=== PATIENT | female | born 1995 | race Caucasian/White ===

== ENCOUNTER 2019-02-21 23:09 | Inpatient (IN) ==
[2019-02-21] MEDS ORDERED: LACTATED RINGER'S 1,000 ML IV PRN (23:20)
[2019-02-21 23:42] LABS: Hematocrit (blood only) 37.9 % (37-47); Hemoglobin 13.4 g/dL (12.0-16.0); Mean Corpuscular Volume 92.7 fL (80-100); Mean Platelet Volume 11.3 fL (7.4-10.4); Platelet Count 222 K/uL (130-400); RDW Coefficient of Variation 12.5 % (11.5-14.5); RDW Standard Deviation 42.3 fL (36.4-46.3); Red Blood Count 4.09 M/uL (4.2-5.4); White Blood Count 17.11 K/uL (4.8-10.8)
[2019-02-21 23:47] LABS: Mean Corpuscular Hgb Conc 35.4 g/dL (32-36)
[2019-02-21] MEDS ORDERED: OXYTOCIN 30 UNITS/500ML NSS ONE (23:47)
[2019-02-22] MEDS: OXYTOCIN 30 UNITS/500 ML BAG IV PRN ×2 (00:02→01:35)
[2019-02-22] MEDS ORDERED: METHYLERGONOVINE MALEATE 0.2 MG/ML AMP ONE (00:03)
[2019-02-22] MEDS ORDERED: miSOPROStol 200 MCG TAB ONE (00:03)
[2019-02-22] MEDS ORDERED: OXYTOCIN 30 UNITS/500 ML BAG IV PRN (00:55)
[2019-02-22] MEDS ORDERED: HYDROCORTISONE ACETATE 25 MG SUPP PR PRN (00:55)
[2019-02-22] MEDS ORDERED: BISACODYL 10 MG SUPP PR PRN (00:55)
[2019-02-22] MEDS ORDERED: miSOPROStol 200 MCG TAB PR ONE (00:55)
[2019-02-22] MEDS ORDERED: ACETAMINOPHEN 325 MG TAB PO PRN (00:55)
[2019-02-22] MEDS ORDERED: SUPERCREAM 0.870% 15 GM JAR EXT PRN (00:55)
[2019-02-22] MEDS ORDERED: METHYLERGONOVINE MALEATE 0.2 MG/ML AMP IM ONE (00:55)
[2019-02-22] MEDS ORDERED: BENZOCAINE 20% AER SPR 82.5 GM CAN EXT PRN (00:55)
[2019-02-22] MEDS ORDERED: IBUPROFEN 600 MG TAB PO ONE (01:26)
--- NOTE | 2019-02-22 01:43 | History and Physical Report ---
DATE OF ADMISSION: 02/21/2019 HISTORY OF PRESENT ILLNESS: The patient is a 23-year-old G1, P0, due date of 02/19/2019 making her 40 weeks and 2 days who presented to labor and delivery at [facility] in labor. On examination, she was found to be 9 cm with bulging membranes. The patient had no shortness of breath. No chills. No rupture of membranes. No bloody show. COURSE: Had been unremarkable. LABORATORY DATA: Blood type is O positive, antibody negative, rubella immune and GBS negative. PAST MEDICAL HISTORY: The patient has a history of insulin resistance. PAST SURGICAL HISTORY: The patient had dental surgery in the past. OBSTETRICAL AND GYNECOLOGICAL HISTORY: This is the patient's first . FAMILY HISTORY: Noncontributory. SOCIAL HISTORY: The patient denies tobacco, drug or alcohol use. ALLERGIES: No known drug allergies. PHYSICAL EXAMINATION: GENERAL: Well-developed, well-nourished white female, in labor discomfort. HEART: S1, S2. Regular rhythm and rate. LUNGS: Clear to auscultation bilaterally. ABDOMEN: Gravid. PELVIC: By nurse present, 9 cm with bulging membranes. EXTREMITIES: No cyanosis, clubbing or edema. ASSESSMENT AND PLAN: This patient is a 23-year-old G1, P0 at 40 and 2 admitted for labor. We anticipate vaginal delivery.
--- NOTE | 2019-02-22 02:30 | Delivery Summary ---
DATE OF OPERATION: 02/21/2019 DELIVERY NOTE The patient delivered a live in left occiput anterior presentation. There was nuchal cord which was easily reduced. was delivered, placed on mother's abdomen. Cord was clamped and cut. The patient was known to have meconium upon artificial rupture of membranes. There was terminal meconium after delivery. Cord was clamped and cut. As stated above, handed over to the pediatric team. Details of patient's resuscitation is in the pediatric record. Cord blood was obtained. Placenta was spontaneously delivered. Inspection of the placenta shows meconium stained placenta. Inspection of the perineum showed second-degree laceration with bilateral deep sulcus tear which was repaired with Vicryl in layers. 2-0 Vicryl and 3-0 Vicryl were used for the repair. Inspection of the perineum post repair showed good sphincter tone. There are no sutures palpated in the rectum. There was good hemostasis. Estimated blood loss was 500 mL. Baby and mother are doing well in recovery. I attest to the content of the Intraoperative Record and any orders documented therein. Any exception s are noted below.
[2019-02-22] MEDS: IBUPROFEN 600 MG TAB PO PRN ×3 (05:52→23:29)
[2019-02-22] MEDS: DOCUSATE SODIUM 100 MG CAP PO SCH ×2 (07:53→20:06)
[2019-02-22] MEDS: FERROUS SULFATE 325 MG TAB PO SCH (07:54)
[2019-02-22] MEDS: PRENATAL VITAMIN 1 TAB PO SCH (07:54)
--- NOTE | 2019-02-22 11:42 | Obstetrical Progress Note ---
Date of Service February 22, 2019 Physical Exam Physical Exam: abdomen soft and non tender vaginal bleeding scant no calf tenderness ambulating well Results & Data Vital Signs (Past 12 Hours) Vital Signs Temp Pulse Pulse Resp BP BP 02/22/19 07:35 37.0 C 91 H 16 122/74 02/22/19 03:20 37.2 C 108 H 18 111/68 02/22/19 02:47 97 H 124/58 L 02/22/19 02:45 18 02/22/19 02:18 96 H 115/78 02/22/19 02:15 02/22/19 02:11 98 H 121/82 02/22/19 01:56 98 H 120/82 02/22/19 01:45 18 02/22/19 01:41 94 H 117/74 02/22/19 01:30 02/22/19 01:26 92 H 117/76 02/22/19 01:15 18 02/22/19 01:11 94 H 115/75 02/22/19 01:00 02/22/19 00:56 105 H 113/73 02/22/19 00:45 02/22/19 00:06 109 H 124/59 L
[2019-02-22 17:41] VITALS: O2SAT 98
[2019-02-23 06:35] LABS: Hematocrit (blood only) 33.2 % (37-47); Hemoglobin 11.3 g/dL (12.0-16.0); Mean Corpuscular Volume 94.3 fL (80-100); Platelet Count 180 K/uL (130-400); RDW Coefficient of Variation 12.8 % (11.5-14.5); RDW Standard Deviation 43.3 fL (36.4-46.3); Red Blood Count 3.52 M/uL (4.2-5.4); White Blood Count 10.65 K/uL (4.8-10.8)
[2019-02-23] MEDS: IBUPROFEN 600 MG TAB PO PRN (07:33)
[2019-02-23] MEDS: FERROUS SULFATE 325 MG TAB PO SCH (07:34)
[2019-02-23] MEDS: PRENATAL VITAMIN 1 TAB PO SCH (07:34)
[2019-02-23] MEDS: DOCUSATE SODIUM 100 MG CAP PO SCH (07:34)
[2019-02-23] MEDS ORDERED: DIPHTHERIA/TETANUS/PERTUSSIS 0.5 ML SYR/VIAL IM ONE (09:00)
[2019-02-23 09:38] VITALS: TEMP 98.1
--- NOTE | 2019-02-23 10:01 | Obstetrical Progress Note ---
Date of Service February 23, 2019 Subjective doing fine Physical Exam Constitutional: WD/WN, vitals as above comfortable abdomen soft non- tender no edema neg Miroslava's for discharge Results & Data Vital Signs (Past 12 Hours) Vital Signs Temp Pulse Resp BP 02/23/19 07:30 36.7 C 73 18 110/74 02/22/19 23:10 36.8 C 87 18 106/70 Laboratory Results Laboratory Results - last 48 hr 02/21/19 02/23/19 23:29 05:55 WBC 17.11 H 10.65 RBC 4.09 L 3.52 L Hgb 13.4 11.3 L Hct 37.9 33.2 L MCV 92.7 94.3 MCH 32.8 32.1 MCHC 35.4 34.0 RDW Std Deviation 42.3 43.3 RDW Coeff of Yudith 12.5 12.8 Plt Count 222 180 MPV 11.3 H 11.0 H
[2019-02-23 11:12] VITALS: BP 121/84; PULSE 92
[2019-02-23] MEDS ORDERED: BISACODYL 5 MG TABEC PO SCH (20:00)
== END 2019-02-23 12:30 | disposition home or self-care (01) | DRG 807 ==
LOC: OPB 23:09 → 4S1 23:16 → 4S2 02-22 03:05

== ENCOUNTER 2021-11-12 07:28 | Inpatient (IN) ==
[2021-11-12] MEDS ORDERED: OXYTOCIN 30 UNITS/500 ML BAG IV PRN ×3 (09:17→22:57)
[2021-11-12 10:03] LABS: Hematocrit (blood only) 36.9 % (37-47); Hemoglobin 12.5 g/dL (12.0-16.0); Mean Corpuscular Hemoglobin 32.1 pg (25-34); Mean Corpuscular Hgb Conc 33.9 g/dL (32-36); Mean Corpuscular Volume 94.9 fL (80-100); Platelet Count 186 K/uL (130-400); RDW Coefficient of Variation 13.1 % (11.5-14.5); RDW Standard Deviation 44.8 fL (36.4-46.3); Red Blood Count 3.89 M/uL (4.2-5.4); White Blood Count 9.43 K/uL (4.8-10.8)
[2021-11-12] MEDS ORDERED: miSOPROStoL 50 MCG TAB PO ONE (10:14)
[2021-11-12] MEDS ORDERED: LACTATED RINGER'S 1,000 ML IV PRN (10:14)
--- NOTE | 2021-11-12 10:24 | Obstetrical Progress Note ---
Date of Service November 12, 2021 Assessment & Plan (1) , post-term: Plan: 26yo Induction for post dates Reviewed course with pt Unremarkable course FHR; CAT1 Ctx ; Minimal VE; /-3 Bedside sono: VT Cytotec Q4 Admission and Anticipated Discharge Date Admission Date: November 12, 2021 Results & Data ([facility]) Vital Signs (Past 12 Hours) Vital Signs Temp Pulse Resp BP 11/12/21 08:19 36.8 C 102 H 18 110/71 11/12/21 08:00 36.8 C 102 H 18 110/71
[2021-11-12] MEDS: LACTATED RINGER'S 1,000 ML IV PRN ×2 (16:00→18:59)
[2021-11-12] MEDS ORDERED: BUTORPHANOL TARTRATE 1 MG/ML VIAL IV PRN (16:15)
--- NOTE | 2021-11-12 18:09 | Labor Progress Brief Note ---
Date of Service November 12, 2021 Assessment & Plan (1) , post-term: Plan: PT doing well FHR; CAT Ctx 2-4mins VE; /-2 AROM with Amnio. hook- +ve Meconium Admission and Anticipated Discharge Date Admission Date: November 12, 2021 Results & Data ([facility]) Vital Signs (Past 12 Hours) Vital Signs Temp Pulse Resp BP 11/12/21 15:13 36.7 C 88 18 120/82 11/12/21 11:32 85 118/72 11/12/21 11:30 36.5 C 85 18 118/72 11/12/21 08:19 36.8 C 102 H 18 110/71 11/12/21 08:00 36.8 C 102 H 18 110/71
[2021-11-12] MEDS ORDERED: SODIUM CHLORIDE 0.9% INJ 10 ML VIAL ONE (18:47)
[2021-11-12] MEDS ORDERED: fentaNYL 2MCG/ML ROPIVACAINE 1.25MG/ML 100 ML BAG EPI ONE (18:47)
[2021-11-12] MEDS ORDERED: fentaNYL citrate 100 MCG/2 ML VIAL ONE (18:47)
[2021-11-12] MEDS ORDERED: ePHEDrine sulfate 50 MG/ML AMP ONE (18:47)
[2021-11-12] MEDS ORDERED: BUPIVACAINE 0.25% 30 ML VIAL ONE (18:47)
[2021-11-12] MEDS ORDERED: NALBUPHINE HCL INJ 10 MG/ML AMP IV PRN (18:57)
[2021-11-12] MEDS ORDERED: NALOXONE HCL 1 MG in SODIUM CHLORIDE 0.9% 1000ML 1,000 ML IV PRN (18:57)
[2021-11-12] MEDS ORDERED: ONDANSETRON INJ 2 MG/ML 2 ML VIAL IV PRN (18:57)
[2021-11-12] MEDS ORDERED: diphenhydrAMINE 50 MG/ML VIAL IV PRN (18:57)
[2021-11-12] MEDS ORDERED: fentaNYL 2MCG/ML ROPIVACAINE 1.25MG/ML 100 ML BAG EPI PRN (18:57)
[2021-11-12] MEDS ORDERED: NALOXONE HCL 0.4 MG/1 ML VIAL/CARP IV PRN (18:57)
[2021-11-12] MEDS ORDERED: ePHEDrine sulfate 50 MG/ML AMP IV PRN (18:57)
--- NOTE | 2021-11-12 18:57 | Anesthesiology Consultation ---
Date of Service November 12, 2021 Assessment & Plan ASA ASA2 Proposed Anesthesia Anesthesia Type: Labor Epidural Risk / Benefits Reviewed With: PT / POA / Parent / Guardian, Accepts Plan and Informed Consent Obtained History Height/Weight Height: 5 ft 5 in Weight: 106.994 kg Allergies Allergy/AdvReac Type Severity Reaction Status Date / Time amoxicillin Allergy Vomiting Verified 11/12/21 08:06 Medications Home Medications Medication Instructions Recorded Confirmed Last Taken vits no.124-ferrous fum 1 tab PO DAILY 02/21/19 11/12/21 11/11/21 27 mg iron-folic acid 800 mcg tablet ( Vitamin) Active Medications Generic Name Dose Route Start Last Admin Trade Name Freq PRN Reason Stop Dose Admin Butorphanol Tartrate 2 mg 11/12/21 16:15 11/12/21 16:30 Butorphanol Tartrate 1 Mg/Ml Vial IV 12/12/21 16:14 2 mg Q4 PRN Administration Pain Lactated Ringer's 1,000 mls @ 125 mls/hr 11/12/21 09:17 11/12/21 18:59 Lr IV 11/14/21 09:16 125 mls/hr .Q8H PRN Administration L&D Protocol Protocol Ropivacaine 100 ml 11/12/21 18:57 11/12/21 19:26 Fentanyl 2mcg/Ml Ropivacaine 1.25mg/Ml 100 Ml Bag EPI 11/13/21 18:56 100 ml PRN PRN Administration Pain R/T Labor Protocol Past Medical History Medical History PCOS (polycystic ovarian syndrome) Exercise / Class Metabolic Activity II 4-5 Yardwork/Stairs/Walk up hill Past Surgical History Surgical History Zavalla teeth removed Past Anesthesia History No Hx of Anesthesia Complications and No Family Hx of Anesthesia Complications History of PONV No Hx of PONV and No Hx of Motion Sickness Social History Smoking Status: Never smoker Hx Alcohol Use: No Hx Substance Use: No Review of Systems denies fever/cough/ colds/ chest pain/ SOB/ VINNIE denies VINNIE Physical Exam Vital Signs Last Vital Signs Temp 37.0 C 11/12/21 19:13 Pulse 85 11/12/21 19:38 Resp 20 11/12/21 19:13 BP 130/67 11/12/21 19:30 Pulse Ox 92 11/12/21 19:38 ENMT Mouth: no TMJ abnormality and no dentition abnormality Thyromental Distance: > or= 3.5 Finger Breadths Mallampati Class: II Neck neck extension not limited Respiratory normal respiratory effort; no respiratory distress Auscultation: lungs clear to auscultation bilaterally Cardiovascular Rate/Rhythm: regular rate and regular rhythm Neurologic moves all extremities Psychiatric Orientation: alert and oriented x 3 Testing Laboratory Results 11/12/21 09:36 Blood Type O Positive 11/12/21 08:34 Antibody Screen NEGATIVE 11/12/21 08:34
--- NOTE | 2021-11-12 21:29 | Labor Progress Brief Note ---
Date of Service November 12, 2021 Assessment & Plan (1) , post-term: Plan: doing well Epidural analgesia placed FHR; CAT1 Ctx 1-3min VE; / Admission and Anticipated Discharge Date Admission Date: November 12, 2021 Results & Data ([facility]) Vital Signs (Past 12 Hours) Vital Signs Temp Pulse Resp BP Pulse Ox 11/12/21 21:23 95 H 93 11/12/21 21:22 98 H 94 11/12/21 21:18 96 H 135/87 93 11/12/21 21:13 110 H 93 11/12/21 21:08 110 H 94 11/12/21 21:06 93 H 90 11/12/21 21:03 109 H 92 11/12/21 21:02 80 131/68 11/12/21 21:01 18 11/12/21 20:58 74 91 11/12/21 20:53 95 H 92 11/12/21 20:48 79 91 11/12/21 20:47 86 133/68 11/12/21 20:43 93 H 90 11/12/21 20:38 100 H 89 L 11/12/21 20:37 93 H 94 11/12/21 20:33 102 H 89 L 11/12/21 20:32 81 125/74 11/12/21 20:31 18 11/12/21 20:28 106 H 92 11/12/21 20:23 90 90 11/12/21 20:18 103 H 93 11/12/21 20:17 93 H 118/70 11/12/21 20:13 83 93 11/12/21 20:12 87 94 11/12/21 20:08 110 H 92 11/12/21 20:03 88 92 11/12/21 20:02 76 127/69 11/12/21 20:01 18 11/12/21 19:58 91 H 91 11/12/21 19:55 89 94 11/12/21 19:53 89 92 11/12/21 19:48 77 125/66 93 11/12/21 19:46 18 11/12/21 19:43 79 92 11/12/21 19:41 18 11/12/21 19:38 85 92 11/12/21 19:36 18 11/12/21 19:33 91 H 94 11/12/21 19:31 18 11/12/21 19:30 94 H 130/67 11/12/21 19:28 89 132/67 94 11/12/21 19:26 96 H 129/57 L 11/12/21 19:24 103 H 134/65 94 11/12/21 19:23 101 H 93 11/12/21 19:18 100 H 94 11/12/21 19:13 37.0 C 121 H 20 95 11/12/21 19:12 123 H 135/62 92 11/12/21 19:11 121 H 161/84 H 11/12/21 18:39 36.8 C 98 H 124/74 11/12/21 15:13 36.7 C 88 18 120/82 11/12/21 11:32 85 118/72 11/12/21 11:30 36.5 C 85 18 118/72
[2021-11-12] MEDS ORDERED: NURSING L&D Epidural Breakthrough Pain Update ONE (21:32)
[2021-11-12] MEDS ORDERED: miSOPROStoL 200 MCG TAB PR ONE (22:57)
[2021-11-12] MEDS ORDERED: ACETAMINOPHEN 325 MG TAB PO PRN (22:57)
[2021-11-12] MEDS ORDERED: BENZOCAINE 20% AER SPR 82.5 GM CAN EXT PRN (22:57)
[2021-11-12] MEDS ORDERED: HYDROCORTISONE ACETATE 25 MG SUPP PR PRN (22:57)
[2021-11-12] MEDS ORDERED: DIPHTHERIA/TETANUS/PERTUSSIS 0.5 ML SYR/VIAL IM ONE (22:57)
[2021-11-12] MEDS ORDERED: bisacodyL 10 MG SUPP PR PRN (22:57)
--- NOTE | 2021-11-13 00:52 | Anesthesiology Progress Note ---
Date of Service November 13, 2021 Anesthesia Post Procedure Vital Signs Vital Signs: Temp Pulse Resp BP Pulse Ox 11/13/21 00:43 18 11/13/21 00:42 82 128/74 11/13/21 00:27 86 117/83 11/13/21 00:15 18 11/13/21 00:12 79 105/73 11/12/21 23:57 80 108/55 L 11/12/21 23:45 18 11/12/21 23:42 80 130/64 11/12/21 23:30 18 11/12/21 23:27 81 143/66 H 11/12/21 23:17 97 H 143/69 H 11/12/21 23:15 18 11/12/21 23:06 90 114/56 L 11/12/21 23:00 18 11/12/21 22:56 96 H 123/60 11/12/21 22:46 96 H 119/57 L 11/12/21 22:45 37.1 C 18 11/12/21 22:43 94 H 92 11/12/21 22:38 98 H 92 11/12/21 22:33 90 92 11/12/21 22:32 88 134/59 L 11/12/21 22:28 98 H 92 11/12/21 22:23 106 H 92 11/12/21 22:18 106 H 93 11/12/21 22:14 118 H 94 11/12/21 22:13 165 H 97 11/12/21 22:09 104 H 92 11/12/21 22:08 126 H 95 11/12/21 22:03 118 H 95 11/12/21 22:02 137 H 141/87 H 11/12/21 21:59 90 94 11/12/21 21:58 89 91 11/12/21 21:53 85 94 11/12/21 21:48 91 H 94 11/12/21 21:47 88 135/65 11/12/21 21:43 101 H 90 11/12/21 21:38 109 H 91 11/12/21 21:33 96 H 132/68 92 11/12/21 21:31 20 11/12/21 21:28 109 H 91 11/12/21 21:26 37.0 C 18 11/12/21 21:23 95 H 93 11/12/21 21:22 98 H 94 04/06/22 21:18 96 H 135/87 93 11/12/21 21:13 110 H 93 11/12/21 21:08 110 H 94 11/12/21 21:06 93 H 90 11/12/21 21:03 109 H 92 11/12/21 21:02 80 131/68 11/12/21 21:01 18 11/12/21 20:58 74 91 11/12/21 20:53 95 H 92 11/12/21 20:48 79 91 11/12/21 20:47 86 133/68 11/12/21 20:43 93 H 90 11/12/21 20:38 100 H 89 L 11/12/21 20:37 93 H 94 11/12/21 20:33 102 H 89 L 11/12/21 20:32 81 125/74 11/12/21 20:31 18 11/12/21 20:28 106 H 92 11/12/21 20:23 90 90 11/12/21 20:18 103 H 93 11/12/21 20:17 93 H 118/70 11/12/21 20:13 83 93 11/12/21 20:12 87 94 11/12/21 20:08 110 H 92 11/12/21 20:03 88 92 11/12/21 20:02 76 127/69 11/12/21 20:01 18 11/12/21 19:58 91 H 91 11/12/21 19:55 89 94 11/12/21 19:53 89 92 11/12/21 19:48 77 125/66 93 11/12/21 19:46 18 11/12/21 19:43 79 92 11/12/21 19:41 18 11/12/21 19:38 85 92 11/12/21 19:36 18 11/12/21 19:33 91 H 94 11/12/21 19:31 18 11/12/21 19:30 94 H 130/67 11/12/21 19:28 89 132/67 94 11/12/21 19:26 96 H 129/57 L 11/12/21 19:24 103 H 134/65 94 11/12/21 19:23 101 H 93 11/12/21 19:18 100 H 94 11/12/21 19:13 37.0 C 121 H 20 95 04/06/22 19:12 123 H 135/62 92 11/12/21 19:11 121 H 161/84 H 11/12/21 18:39 36.8 C 98 H 124/74 11/12/21 15:13 36.7 C 88 18 120/82 11/12/21 11:32 85 118/72 11/12/21 11:30 36.5 C 85 18 118/72 11/12/21 08:19 36.8 C 102 H 18 110/71 11/12/21 08:00 36.8 C 102 H 18 110/71 Pain Intensity Lower Abdomen: Pain Intensity: 6 Transfer of Care Handoff Completed per policy Notes Mental Status: alert / awake / arousable and participated in evaluation Patient Amnestic to Procedure: Yes Nausea / Vomiting: adequately controlled Pain: adequately controlled Airway Patency, RR, SpO2: stable & adequate BP & HR: stable & adequate Hydration State: stable & adequate Anesthetic Complications: no major complications apparent and Pt Satisfied with anesthetic care
[2021-11-13] MEDS: IBUPROFEN 600 MG TAB PO PRN ×5 (03:32→21:36)
[2021-11-13 06:40] LABS: Hematocrit (blood only) 33.5 % (37-47); Hemoglobin 11.2 g/dL (12.0-16.0); Mean Corpuscular Hemoglobin 31.5 pg (25-34); Mean Corpuscular Hgb Conc 33.4 g/dL (32-36); Mean Corpuscular Volume 94.4 fL (80-100); Platelet Count 199 K/uL (130-400); RDW Coefficient of Variation 12.9 % (11.5-14.5); RDW Standard Deviation 44.5 fL (36.4-46.3); Red Blood Count 3.55 M/uL (4.2-5.4); White Blood Count 15.37 K/uL (4.8-10.8)
[2021-11-13] MEDS: DOCUSATE SODIUM 100 MG CAP PO SCH ×2 (08:25→21:35)
[2021-11-13] MEDS: PRENATAL VITAMIN 1 TAB PO SCH (08:25)
--- NOTE | 2021-11-13 08:53 | Obstetrical Progress Note ---
Date of Service November 13, 2021 Subjective Ambulation: ambulating normally Voiding: no voiding problems Passing Gas:: Yes Diet Tolerance:: regular diet Lochia:: Small Feeding Type:: bottle feeding Current Pain Level(1-10): 0 doing well Physical Exam Constitutional WD/WN, vitals as above abdomen soft and non-tender fundus firm neg Homans no edema tent d/c in Am Results & Data ([facility]) Vital Signs (Past 12 Hours) Vital Signs Temp Pulse Pulse Resp BP BP Pulse Ox 11/13/21 07:30 36.6 C 73 16 117/73 96 11/13/21 03:15 36.8 C 83 18 110/72 96 11/13/21 01:20 37.1 C 80 18 110/71 11/13/21 00:45 18 11/13/21 00:43 18 11/13/21 00:42 82 128/74 11/13/21 00:27 86 117/83 11/13/21 00:15 18 11/13/21 00:12 79 105/73 11/12/21 23:57 80 108/55 L 11/12/21 23:45 18 11/12/21 23:42 80 130/64 11/12/21 23:30 18 11/12/21 23:27 81 143/66 H 11/12/21 23:17 97 H 143/69 H 11/12/21 23:15 18 11/12/21 23:06 90 114/56 L 11/12/21 23:00 18 11/12/21 22:56 96 H 123/60 11/12/21 22:46 96 H 119/57 L 11/12/21 22:45 37.1 C 18 11/12/21 22:43 94 H 92 11/12/21 22:38 98 H 92 11/12/21 22:33 90 92 11/12/21 22:32 88 134/59 L 11/12/21 22:28 98 H 92 11/12/21 22:23 106 H 92 11/12/21 22:18 106 H 93 11/12/21 22:14 118 H 94 11/12/21 22:13 165 H 97 11/12/21 22:09 104 H 92 11/12/21 22:08 126 H 95 11/12/21 22:03 118 H 95 11/12/21 22:02 137 H 141/87 H 11/12/21 21:59 90 94 11/12/21 21:58 89 91 11/12/21 21:53 85 94 11/12/21 21:48 91 H 94 11/12/21 21:47 88 135/65 11/12/21 21:43 101 H 90 11/12/21 21:38 109 H 91 11/12/21 21:33 96 H 132/68 92 11/12/21 21:31 20 11/12/21 21:28 109 H 91 11/12/21 21:26 37.0 C 18 11/12/21 21:23 95 H 93 11/12/21 21:22 98 H 94 11/12/21 21:18 96 H 135/87 93 11/12/21 21:13 110 H 93 11/12/21 21:08 110 H 94 11/12/21 21:06 93 H 90 11/12/21 21:03 109 H 92 11/12/21 21:02 80 131/68 11/12/21 21:01 18 11/12/21 20:58 74 91 11/12/21 20:53 95 H 92 Laboratory Results 11/12/21 11/12/21 11/13/21 08:34 09:36 06:14 WBC 9.43 15.37 H RBC 3.89 L 3.55 L Hgb 12.5 11.2 L Hct 36.9 L 33.5 L MCV 94.9 94.4 MCH 32.1 31.5 MCHC 33.9 33.4 RDW Std Deviation 44.8 44.5 RDW Coeff of Yudith 13.1 12.9 Plt Count 186 199 MPV 11.0 H 11.0 H Blood Type O Positive Antibody Screen NEGATIVE
[2021-11-13] MEDS ORDERED: bisacodyL 5 MG TABEC PO SCH (20:00)
[2021-11-14 06:50] LABS: Hemoglobin 11.4 g/dL (12.0-16.0)
[2021-11-14] MEDS: IBUPROFEN 600 MG TAB PO PRN (07:41)
[2021-11-14] MEDS: PRENATAL VITAMIN 1 TAB PO SCH (07:41)
[2021-11-14] MEDS: DOCUSATE SODIUM 100 MG CAP PO SCH (07:41)
[2021-11-14 08:26] LABS: Basophils # (auto) 0.02 K/uL (0-0.2); Basophils % (auto) 0.2 %; Eosinophils # (auto) 0.09 K/uL (0-0.5); Hematocrit (blood only) 33.5 % (37-47); Hemoglobin 11.4 g/dL (12.0-16.0); Immature Granulocytes % (auto) 1.1 %; Lymphocytes % (auto) 21.1 %; Mean Corpuscular Hemoglobin 32.3 pg (25-34); Mean Corpuscular Volume 94.9 fL (80-100); Mean Platelet Volume 11.1 fL (7.4-10.4); Monocytes # (auto) 0.51 K/uL (0.11-0.59); Monocytes % (auto) 5.4 %; Neutrophils # (auto) 6.74 K/uL (1.4-6.5); Neutrophils % (auto) 71.2 %; Platelet Count 203 K/uL (130-400); RDW Coefficient of Variation 13.3 % (11.5-14.5); RDW Standard Deviation 45.2 fL (36.4-46.3); Red Blood Count 3.53 M/uL (4.2-5.4); White Blood Count 9.46 K/uL (4.8-10.8)
--- NOTE | 2021-11-14 08:39 | Obstetrical Progress Note ---
Date of Service November 14, 2021 Assessment & Plan Admission and Anticipated Discharge Date Admission Date: November 12, 2021 Subjective Patient is seen and examined. She feels well, no complaints. Ambulating without dizziness Voiding without difficulty Tolerating regular diet with out N&V Bleeding is minimal No fever/ chills/ CP/ SOB/ N&V/ Leg pain Breast feeding without problems Lab Results 11/12/21 11/12/21 11/13/21 Range/Units 08:34 09:36 06:14 WBC 9.43 15.37 H (4.8-10.8) K/uL RBC 3.89 L 3.55 L (4.2-5.4) M/uL Hgb 12.5 11.2 L (12.0-16.0) g/dL Hct 36.9 L 33.5 L (37-47) % MCV 94.9 94.4 (80-100) fL MCH 32.1 31.5 (25-34) pg MCHC 33.9 33.4 (32-36) g/dL RDW Std Deviation 44.8 44.5 (36.4-46.3) fL RDW Coeff of Yudith 13.1 12.9 (11.5-14.5) % Plt Count 186 199 (130-400) K/uL MPV 11.0 H 11.0 H (7.4-10.4) fL Immature Gran % (Auto) % Neut % (Auto) % Lymph % (Auto) % Tripp % (Auto) % Eos % (Auto) % Baso % (Auto) % Neut # (Auto) (1.4-6.5) K/uL Lymph # (Auto) (1.2-3.4) K/uL Tripp # (Auto) (0.11-0.59) K/uL Eos # (Auto) (0-0.5) K/uL Baso # (Auto) (0-0.2) K/uL Immature Gran # (Auto) (0.00-0.02) K/uL Blood Type O Positive Antibody Screen NEGATIVE 11/14/21 11/14/21 Range/Units 06:36 06:36 WBC 9.46 (4.8-10.8) K/uL RBC 3.53 L (4.2-5.4) M/uL Hgb 11.4 L 11.4 L (12.0-16.0) g/dL Hct 34.0 L 33.5 L (37-47) % MCV 94.9 (80-100) fL MCH 32.3 (25-34) pg MCHC 34.0 (32-36) g/dL RDW Std Deviation 45.2 (36.4-46.3) fL RDW Coeff of Yudith 13.3 (11.5-14.5) % Plt Count 203 (130-400) K/uL MPV 11.1 H (7.4-10.4) fL Immature Gran % (Auto) 1.1 % Neut % (Auto) 71.2 % Lymph % (Auto) 21.1 % Tripp % (Auto) 5.4 % Eos % (Auto) 1.0 % Baso % (Auto) 0.2 % Neut # (Auto) 6.74 H (1.4-6.5) K/uL Lymph # (Auto) 2.00 (1.2-3.4) K/uL Tripp # (Auto) 0.51 (0.11-0.59) K/uL Eos # (Auto) 0.09 (0-0.5) K/uL Baso # (Auto) 0.02 (0-0.2) K/uL Immature Gran # (Auto) 0.10 H (0.00-0.02) K/uL Blood Type Antibody Screen Vital Signs Temp Pulse Resp BP Pulse Ox 11/14/21 07:41 36.8 C 77 16 99/66 L 97 11/14/21 00:10 36.4 C L 70 18 111/76 96 PE: General: Alert, orientedx3, NAD Abd: soft, NT, fundus firm, below Umbilicus Perineum intact, Lochia rubra minimal Ext; NT, no edema AP: 26 yo s/p , ppd# 2 VSS Afebrile doing well Continue routine care All questions were answered D/C home , f/u in office Discussed when to call Results & Data ([facility]) Vital Signs (Past 12 Hours) Vital Signs Temp Pulse Resp BP Pulse Ox 11/14/21 07:41 36.8 C 77 16 99/66 L 97 11/14/21 00:10 36.4 C L 70 18 111/76 96
--- NOTE | 2021-11-28 16:23 | Delivery Summary ---
DATE OF PROCEDURE: 11/12/2021. DELIVERY NOTE: The patient delivered a live in occiput anterior presentation, was suctioned. Delayed cord clamp was performed. The was handed over to the pediatric team. Prior to delive ry, patient was known to have moderate meconium. Placenta was spontaneously delivered. Inspection o f the placenta showed meconium stained placenta, this was sent to pathology for pathological analysis . 's weight and Apgars are in the pediatric record. Cord blood and cord gases obtained. Insp ection of the perineum showed ____ was inspected. All instruments were removed from the vagina and accounted for x2 including sponges, needles, and ret ractors. There was good hemostasis. and mother were sent to recovery in stable condition. Job ID: [id number]
== END 2021-11-14 11:05 | disposition home or self-care (01) | DRG 807 ==
LOC: 4S1 07:28 → 4E1 11-13 01:24

== ENCOUNTER 2024-11-30 04:20 | Inpatient (IN) ==
--- OUTSIDE RECORDS SUMMARY | 2024-11-30 04:26 | External Medical Summary | Summary of Care ---
Author Name Unknown Organization [facility] Address [address] [place] [address] Phone [phone] Care Team Providers Care Radon Inspector Name Role Phone John Mcgee MD Primary Care Provider + [phone] Reason for Visit * Reason Comments Return Visit Encounter Details Date Type Department Care Team (Late st Contact Info) Description 11/17/2024 11:30 AM EDT Office Visit Gynecology/Obstetric s Nena Walsh [address] [place] [address] Lyssa Perez CRNP [address] [place] [address] Normal in third trimester*; Obesity in , antepartum; Uterine size date discrepancy Allergies Active Allergy Reactions Criticality Noted Date Comments Amoxicillin 04/05/2019 documented as of this encounter (statuses as of 11/17/2024) Medications Forte Oral Tablet Take by mouth. Act maria antonia Omeprazole 20 MG Oral Capsule Delayed Release (PriLOSEC) Take 1 Capsule by mouth in the morning. Active Fluticasone Propionate 50 MCG/ACT Nasal Suspension (Flonase) Administer 2 Sprays into nostril as needed. Active documented as of this encounter (statuses as of 11/17/2024) Active Problems Problem Noted Date Diagnosed Date Normal 05/10/2024 Obesity in , antepartum 05/10/2024 Overview (06/07/2024): Class 1 The patient's pre-gravid BMI is 34.45. Normal early GTT Estimated Date of Delivery Comme nts Yes 12/01/2024 Based on Ultraso und documented as of this encounter (statuses as of 11/17/2024) Resolved Problems Problem Noted Date Diagnosed Date Resolved Date Antepartum anemia complicating 09/03/2021 12/02/2021 Overview (09/03/2021): Hemoglobin 11.2 on 08/20/21 Supervision of other normal 04/01/2021 12/02/2021 Obesity, Class II, BMI 35-39 .9, isolated (see actual BMI) 04/01/2021 12/02/2021 Overview (04/01/2021): Early glucola Growth u/s every 4 weeks after 20wk History of precipitous labor and delivery 04/01/2021 12/02/2021 Overview (04/01/2021): First labor approximately 2.5hours Insulin resistance complicating 07/13/2018 02/21/2019 Overview (09/08/2018): Stop metformin at 12wks, do early 1hr gtt after stopping metformin- normal Supervision of normal first 07/13/2018 02/21/2019 Overview (12/14/2018): 12/14/2018 Tdap Vaccine administered per clinic protocol. Pt given VIS(vaccine information sheet) Janna Vidal RN documented as of this encounter (statuses as of 11/17/2024) Immunizations Name Administration Dates Next Due TDAP (age 10 and older)(Boostrix) 08/20/2021,03/2019 TDAP, Age 7 and older, IM (Adacel) 09/15/2024 documented as of this encounter Social History Tobacco Use Types Packs/Day Years Used Date Smoking Tobacco: Never Smokeless Tobacco: Never Alcohol Use Standard Drinks/Week Comments Yes 0 (1 standard drink = 0.6 oz pur e alcohol) rare AUDIT-C Answer Date Recorded Frequency of Alcohol Consumption Never 03/24/2021 Average Number of Drinks Not on file 021 Frequency of Binge Drinking Not on file 03/09 PHQ-2 Answer Date Recorded PHQ-2 Score 0 11/20/2018 Hunger Vital Sign Answer Date Recorded Within the past 12 months, y ou worried that your food would run out before you got the money to buy more. Never true 04/19/20 24 Within the past 12 months, t he food you bought just didn't last and you didn't have money to get more. Never true 04/19/2024 [place] Depression Scale Answer Date Recorded [place] Depression Scale Total 0 10/11/2024 The thought of harming myself has occurred to me . Never 10/11/2024 Childcare Answer Date Recorded Do you feel overwhelmed with taking care of a child, family member or friend? No 04/19/2024 Does your family need help f inding childcare? (Household - for ages 0-17 years) Not on file 04/19/2024 Clothing Answer Date Recorded Have you been unable to get clothing when it was really needed? No 04/19/2024 Is your family able to get c lothes or diapers when needed? (Household - for ages 0-17 years) Not on file 04/19/2024 Personal Safety Answer Date Recorded Do you feel unsafe or have concerns for your saf ety? No 04/19/2024 Do you have concerns for you r family's safety? (Household - for ages 0-17 years) Not on file 04/19/2024 Utilities Answer Date Recorded Do you have trouble paying y our heating, water, or electric bill? No 04/19/2024 Is your family able to pay t he heat, water, or electric bill? (Household - for ages 0-17 years) Not on file 04/19/2024 Does your family have access to good internet? (Household - for ages 0-17 years) Not on file 04/19/2024 Employment Status Answer Date Recorded Are you unemployed or without regular income? No 04/19/2024 Does the household have a re gular source of income? (Household - for ages 0-17 years) Not on file 04/19/2024 Social Connections Answer Date Recorded How often do you feel lonely or isolated from th ose around you? Never 04/19/2024 Financial Resource Strain Answer Date R ecorded Do you have any trouble payi ng for your medications, or do you think you might in the future? No 04/19/2024 Does your family have troubl e paying for medicine? (Household - for ages 0-17 years) Not on file 04/19/2024 Transportation Needs Answer Date Record ed Do you have trouble getting a ride to medical visits or work? (Adult - for ages 18 years and over) Not on file 04/19/2024 Does your family have a hard time getting a ride to doctors visits? (Household - for ages 0-17 years) Not on file 04/19/2024 Has lack of transportation k ept you from medical appointments, meetings, work, or from getting things needed for daily living? Check all that apply. No 04/19/2024 Do you (or your family) have trouble finding or paying for a ride (transportation)? (Household - for ages 0-17 years) Not on file 04/19/2024 Housing Stability Answer Date Recorded Do you currently live in a s helter or have no steady place to sleep at night? No 04/19/2024 Do you think you are at risk of becoming homeless? (Adult - for ages 18 years and over) Not on file 04/19/2024 Does your family worry about paying for your home or becoming homeless? (Household - for ages 0-17 years) Not on file 0 04/19/2024 Are you homeless or worried that you might be in the future? No 04/19/2024 Are you (or your family) paulina eless or worried that you might be in the future? (Household - for ages 0-17 years) Not on file Food Insecurity Answer Date Recorded Do you need food for this week? No 04/19/2024 Are you able to get enough f ood for your family? (Household - for ages 0-17 years) Not on file 04/19/2024 Does your family need food t his week? (Household - for ages 0-17 years) Not on file 04/19/2024 Do you always have enough fo od for your family? (Household - for ages 0-17 years) Not on file 04/19/2024 Food Insecurity Answer Date Recorded Within the past 12 months, y ou worried that your food would run out before you got the money to buy more. Never true 04/19/20 24 Within the past 12 months, t he food you bought just didn't last and you didn't have money to get more. Never true 04/19/2024 Do you need food for this week? 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 Discussed FKC and when to call w/concerns. No LOF, bleeding, regular ctx. Reviewed labor signs. S>D, will schedule growth scan. Cephalic by [facility]. 1 week return YAZMIN Dexter * Tanisha Bruner LPN - 11/17/2024 11:32 AM EDT 38w0d Denies vaginal bleeding/rom + movement No new concerns documented in this encounter Plan of Treatment Upcoming Encounters Date Type Department Care Team (Late st Contact Info) Description 11/23/2024 12:30 PM EDT Imaging Radiology [address] [place] [id number] 11/24/2024 11:45 AM EDT Office Visit Gynecology/Obstetrics [facility] [address] [place] [address] Lyssa Perez CRNP [address] [place] [address] 12/01/2024 11:45 AM EDT Office Visit Gynecology/Obstetrics [facility] [address] [place] [address] Lyssa Perez CRNP [address] [place] [address] Scheduled Orders Name Type Priority Associated Diagnoses Orde r Schedule US PREG FOLLOW-UP EACH FETUS Medical Imaging Routine Normal in third trimester Uterine size date discrepancy Expected: 11/17/2024 (Approximate), Expires: 12/17/2025 Health Maintenance Due Date Last Done Comments Depression Screening 2007 Hepatitis B Vaccine (1 of 3 - 19+ 3-dose series) 2014 Lipid Panel 2015 COVID-19 Vaccine (1 - 2023-2 5 season) 2024 Influenza Vaccine (FLU shot) (Season Ended) 2025 Pap Smear 05/10/2027 05/10/2024, 04/01/2021, 11/24/2017 DTap/Tdap Vaccines (4 - Td o r Tdap) 09/15/2034 09/15/2024, 08/20/2021, 12/14/2018 Gonorrhea / Chlamydia Screen Discontinued 09/2023, 04/01/2021, 07/13/2018 HPV (Gardasil) Vaccine Aged Out No lo nger eligible based on patient's age to complete this topic MENINGOCOCCAL (MENACTRA/MENVEO) Aged Out No longer eligible based on patient's age to complete this topic Meningitis B Vaccine (Bexsero/Trumemba) Aged Out No longer eligible based on patient's age to complete this topic Pneumococcal Vaccine: Pediatrics (0 to 5 Years) and At-Risk Patients (6 to 18 Years and 19+ Years) Aged Out No longer eligible based on patient's age to complete this topic documented as of this encounter Medical Devices Not on filedocumented as of this encounter Visit Diagnoses Diagnosis Normal in third trimester- Primary Obesity in , antepartum Obesity complicating , childbirth, or the puerperium, antepartum condition or complication Uterine size date discrepancy Uterine size date discrepancy, antepartum condition or complication documented in this encounter Care Teams Radon Inspector Relationship Specialty Start Date End Date John Mcgee MD [address] [place] [address] PCP - General Family Medicine 11/24/17 documented as of this encounter
--- OUTSIDE RECORDS SUMMARY | 2024-11-30 04:26 | External Medical Summary | Summary of Care ---
Author Name Unknown Organization [facility] Address [address] [place] [address] Phone [phone] Care Team Providers Care Utility Worker Roller Shop Name Role Phone John Mcgee MD Primary Care Provider [phone] Encounter Details Date Type Department Care Team (Late st Contact Info) Description 11/24/2024 Telephone Gynecology/Obstetrics [facility] [address] [facility] [place] [address] Backer, YAZMIN Mcintyre [address] [facility] [address] Allergies Active Allergy Reactions Criticality Noted Date Comments Amoxicillin 04/05/2019 documented as of this encounter (statuses as of 11/29/2024) Medications Forte Oral Tablet Take by mouth. Act maria antonia Omeprazole 20 MG Oral Capsule Delayed Release (PriLOSEC) Take 1 Capsule by mouth in the morning. Active Fluticasone Propionate 50 MCG/ACT Nasal Suspension (Flonase) Administer 2 Sprays into nostril as needed. Active documented as of this encounter (statuses as of 11/29/2024) Active Problems Problem Noted Date Diagnosed Date LGA (large for gestational a ge) fetus affecting management of mother 11/24/2024 Overview (11/24/2024): EFW 96% at 39 wk BPD measures 9.73 cm corresponding to 39 weeks 6 days. HC measures 35.0 cm corresponding to 40 weeks 6 days. AC measures 37.3 cm corresponding to 41 weeks 2 day. FL measures 7.92 cm corresponding to 40 weeks 4 days. HL measures 6.88 cm corresponding to 40 weeks 1 day Normal 05/10/2024 Obesity in , antepartum 05/10/2024 Overview (06/07/2024): Class 1 The patient's pre-gravid BMI is 34.45. Normal early GTT Estimated Date of Delivery Comme nts Yes 12/01/2024 Based on Ultraso und documented as of this encounter (statuses as of 11/29/2024) Resolved Problems Problem Noted Date Diagnosed Date [...] protocol. Pt given VIS(vaccine information sheet) Janna E Park, RN documented as of this encounter (statuses as of 11/29/2024) Immunizations Name Administration Dates Next Due TDAP [...] money to get more. 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 Not on file Not on file documented as of this encounter Plan of Treatment Upcoming Encounters Date Type Department Care Team (Late st Contact Info) Description 12/01/2024 11:45 AM EDT Office Visit Gynecology/Obstetrics Nena Walsh [address] [place] [address] Lyssa Perez CRNP [address] [place] [address] Health Maintenance Due Date Last Done Comments Depression Screening 2007 Hepatitis B Vaccine (1 of 3 - 19+ 3-dose series) 2014 Lipid Panel 2015 COVID-19 Vaccine (2023-2 5 season) 2024 Influenza Vaccine (FLU shot) [...] Not on filedocumented as of this encounter Care Teams Utility Worker Roller Shop Relationship Specialty Start Date End Date John Mcgee MD [address] [place] [address] PCP - General Family Medicine 11/24/17 documented as of this encounter
--- OUTSIDE RECORDS SUMMARY | 2024-11-30 04:26 | External Medical Summary ---
Author Name Unknown Address Unknown Organization K01:[facility] [place] [facility] [address] [place] [address] Laboratory Report Ordering Provider Test Date Status SUBHASH STEPHENS 11/08/2024 09:52:34 Final Observation Date Value Abnormality Reference (Units ) Status Streptococcus agalactiae DNA [Presence] in Specimen by MINA with probe detection 11/08/2024 09:52:34 Negative Negative Final No Group B Streptococcus det ected by culture-enhanced PCR (amplified probe). GBS GBSCT - [facility] 11/08/2024 09:52:34 0.0 Final GBS SPCCT - [facility] 11/08/2024 09:52:34 32.0 Final Performing Location [facility] [place] [address] [place] [address]
--- OUTSIDE RECORDS SUMMARY | 2024-11-30 04:26 | External Medical Summary | Summary of Care ---
Author Name Unknown Organization [facility] Address [address] [place] [address] Phone [phone] Care Team Providers Care Non Destructive Testing Supervisor Name Role Phone John Mcgee MD Primary Care Provider + [phone] Reason for Visit * Reason Comments Return Visit Encounter Details Date Type Department Care Team (Late st Contact Info) Description 11/24/2024 11:45 AM EDT Office Visit Gynecology/Obstetric s [facility] [address] [place] [address] Lyssa Perez CRNP [address] [place] [address] Normal in third trimester*; Obesity in , antepartum; Excessive growth affecting management of in third trimester, single or unspecified fetus Allergies Active Allergy Reactions Criticality Noted Date Comments Amoxicillin 04/05/2019 documented as of this encounter (statuses as of 11/24/2024) Medications Forte Oral Tablet Take by mouth. Act maria antonia Omeprazole 20 MG Oral Capsule Delayed Release (PriLOSEC) Take 1 Capsule by mouth in the morning. Active Fluticasone Propionate 50 MCG/ACT Nasal Suspension (Flonase) Administer 2 Sprays into nostril as needed. 4 Active documented as of this encounter (statuses as of 11/24/2024) Active Problems Problem Noted Date Diagnosed Date [...] as of this encounter (statuses as of 11/24/2024) Resolved Problems Problem Noted Date Diagnosed Date [...] as of this encounter (statuses as of 11/24/2024) Immunizations Name Administration Dates Next Due TDAP [...] money to get more. Never true 04/19/2024 [place] Depression Scale Answer Date Recorded [place] Depression Scale Total 0 10/11/2024 The thought [...] No 04/19/2024 Does the household have a [facility] source [facility] income? 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 EFW 96th%ile on scan yesterday, AC measuring 41 weeks. No ctx, LOF, bleeding. Good movement. Discussed concerns for shoulder dystocia with large AC, increased risk of injury and neonatalrespiratory distress, hypoglycemia with LGA. Fist baby was 4.065 kg, 2nd 3.884 kg. Recommend repeat 1 hr GTT to r/o undiagnosed GDM. She is agreeable to completing this today. Recommend delivery close to 40 weeks. Pt agreeable to scheduling induction. Pt desires exam, fingertip dilated/high. Call office with regular painful ctx, LOF, bleeding, decreased FM. Library Clerk Talking Books Documentation Provider requested envelope sealer. Name of envelope sealer: YAZMIN Soto * Arabella Fishman CMA - 11/24/2024 11:57 AM EDT 39w0d Baby measuring 9lbs 4oz- 40w6d on ultrasound yesterday. documented in this encounter Plan of Treatment Upcoming Encounters Date Type Department Care Team (Late st Contact Info) Description 12/01/2024 11:45 AM EDT Office Visit Gynecology/Obstetrics [facility] [address] [place] [address] Lyssa Perez CRNP [address] [place] [address] Scheduled Orders Name Type Priority Associated Diagnoses Orde r Schedule 50-G GESTATIONAL GLUCOSE, 1 HOUR Lab Routine Excessive growth affecting management of in third trimester, single or unspecified fetus Expected: 11/24/2024, Expires: 11/24/2025 Health Maintenance Due Date Last Done Comments [...] or the puerperium, antepartum condition or complication Excessive growth affecting management of in third trimester, single or unspecified fetus documented in this encounter Care Teams Non Destructive Testing Supervisor Relationship Specialty Start Date End Date John Mcgee MD [address] [place] [address] PCP - General Family Medicine 11/24/17 documented as of this encounter
--- OUTSIDE RECORDS SUMMARY | 2024-11-30 04:26 | External Medical Summary | Summary of Care ---
Author Name Unknown Organization [facility] Address [address] [place] [address] Phone [phone] Care Team Providers Care Industrial Retrofit Designer Name Role Phone John Mcgee MD Primary Care Provider + [phone] Reason for Visit * Reason Comments Return Visit Encounter Details Date Type Department Care Team (Late st Contact Info) Description 11/08/2024 9:45 AM EDT Office Visit Gynecology/Obstetric s [facility] [address] [place] [address] Chelsy Flowers CRNP [address] [facility] [place] [address] Normal in third trimester*; Obesity in , antepartum Allergies Active Allergy Reactions Criticality Noted Date Comments Amoxicillin 04/05/2019 documented as of this encounter (statuses as of 11/08/2024) Medications Forte Oral Tablet Take by mouth. Active Omeprazole 20 MG Oral Capsule Delayed Release (PriLOSEC) Take 1 Capsule by mouth in the morning. Active Fluticasone Propionate 50 MCG/ACT Nasal Suspension (Flonase) INSTILL 2 SPRAY(S) IN EACH NOSTRIL ONCE DAILY 08/08/2024 Active documented as of this encounter (statuses as of 11/08/2024) Active Problems Problem Noted Date Diagnosed Date Normal 05/10/2024 Obesity in , antepartum 05/10/2024 Overview (06/07/2024): Class 1 The patient's pre-gravid BMI is 34.45. Normal early GTT Estimated Date of Delivery Comme nts Yes 12/01/2024 Based on Ultraso und documented as of this encounter (statuses as of 11/08/2024) Resolved Problems Problem Noted Date Diagnosed Date [...] as of this encounter (statuses as of 11/08/2024) Immunizations Name Administration Dates Next Due TDAP [...] money to get more. 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 Good FM. No contractions, bleeding, or LOF. GBS today. Road Grader Documentation Provider requested investment manager. Name of investment manager: YAZMIN Garzon * Arabella Fishman CMA - 11/08/2024 9:41 AM EDT 36w5d GBS swab today documented in this encounter Plan of Treatment Upcoming Encounters Date Type Department Care Team (Late st Contact Info) Description 11/17/2024 11:30 AM EDT Office Visit Gynecology/Obstetrics [facility] [address] [place] [address] Lyssa Perez CRNP [address] [place] [address] 11/24/2024 11:45 AM EDT Office Visit Gynecology/Obstetrics [facility] [address] [place] [address] Lyssa Perez CRNP [address] [place] [address] 12/01/2024 11:45 AM EDT Office Visit Gynecology/Obstetrics [facility] [address] [place] [address] Lyssa Perez CRNP [address] [place] [address] Pending Results Name Type Priority Associated Diagnoses Date /Time GROUP B STREP CULTURE/PCR Lab Routine Normal in third trimester 11/08/2024 9:52 AM EDT Scheduled Orders Name Type Priority Associated Diagnoses Orde r Schedule GROUP B STREP CULTURE/PCR Lab Routine Normal in third trimester Expected: 11/08/2024, Expires: 11/08/2025 Health Maintenance Due Date Last Done Comments [...] or the puerperium, antepartum condition or complication documented in this encounter Care Teams Industrial Retrofit Designer Relationship Specialty Start Date End Date John Mcgee MD [address] [place] [address] PCP - General Family Medicine 11/24/17 documented as of this encounter
--- OUTSIDE RECORDS SUMMARY | 2024-11-30 04:26 | External Medical Summary | Summary of Care ---
Author Name Unknown Organization [facility] Address [address] [place] [address] Phone [phone] Care Team Providers Care Xerox Machine Operator Name Role Phone John Mcgee MD Primary Care Provider + [phone] Reason for Visit * Reason Comments Return Visit Encounter Details Date Type Department Care Team (Late st Contact Info) Description 11/08/2024 9:45 AM EDT Office Visit Gynecology/Obstetric s [facility] [address] [place] [address] Chelsy Flowers CRNP [address] [facility] [place] [address] Normal in third trimester*; Obesity in , [...] money to get more. 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 GBS today. Acquisitions Librarian Documentation Provider requested legal manager. Name of legal manager: YAZMIN Garzon * Arabella Fishman CMA - 11/08/2024 9:41 AM EDT 36w5d GBS swab today documented in this encounter Plan of Treatment Upcoming Encounters Date Type Department Care Team (Late st Contact Info) Description 11/17/2024 11:30 AM EDT Office Visit Gynecology/Obstetrics [facility] [address] [place] [address] Lyssa Perez CRNP [address] [place] [address] 11/24/2024 11:45 AM EDT Office Visit Gynecology/Obstetrics [facility] [address] [place] [address] Lyssa Perze CRNP [address] [place] [address] 12/01/2024 11:45 AM EDT Office Visit Gynecology/Obstetrics [facility] [address] [place] [address] Lyssa Perez CRNP [address] [place] [address] Pending Results Name Type Priority Associated Diagnoses [...] complication documented in this encounter Care Teams Xerox Machine Operator Relationship Specialty Start Date End Date John Mcgee MD [address] [place] [address] PCP - General Family Medicine 11/24/17 documented as of this encounter
--- OUTSIDE RECORDS SUMMARY | 2024-11-30 04:27 | External Medical Summary | Summary of Care ---
Author Name Unknown Organization [facility] Address [address] [place] [address] Phone [phone] Care Team Providers Care Quebracho Tanner Name Role Phone John Mcgee MD Primary Care Provider [phone] Reason for Visit * Reason Comments Outpatient Testing Encounter Details Date Type Department Care Team (Late st Contact Info) Description 09/15/2024 9:00 AM EST Laboratory Laboratory, [facility] [address] [place] [phone] [facility] [address] [place] [address] Abnormal glucose tolerance in mother complicating Allergies Active Allergy Reactions Criticality Noted Date Comments Amoxicillin 04/05/2019 documented as of this encounter (statuses as of 09/15/2024) Medications Forte Oral Tablet Take by mouth. Act maria antonia Omeprazole 20 MG Oral Capsule Delayed Release (PriLOSEC) Take 1 Capsule by mouth in the morning. Active Azithromycin 250 MG Oral Tablet (Zithromax) azithromycin 250 mg tablet 4 Active Fluticasone Propionate 50 MCG/ACT Nasal Suspension (Flonase) INSTILL 2 SPRAY(S) IN EACH NOSTRIL ONCE DAILY 4 Active documented as of this encounter (statuses as of 09/15/2024) Active Problems Problem Noted Date Diagnosed Date Normal 05/10/2024 Obesity in , antepartum 05/10/2024 Overview (06/07/2024): Class 1 The patient's pre-gravid BMI is 34.45. Normal early GTT Estimated Date of Delivery Comme nts Yes 12/01/2024 Based on Ultraso und documented as of this encounter (statuses as of 09/15/2024) Resolved Problems Problem Noted Date Diagnosed Date [...] as of this encounter (statuses as of 09/15/2024) Immunizations Name Administration Dates Next Due TDAP [...] money to get more. Never true 04/19/2024 [place] Depression Scale Answer Date Recorded [place] Depression Scale Total 0 05/10/2024 The thought of harming myself has occurred to me . 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 [address] [place] [address] Freddie Barbour MD [address] [place] [address] Health Maintenance Due Date Last Done Comments Hepatitis B Vaccine (1 of 3 - 19+ 3-dose series) 2014 Depression Screening 11/16/2019 11/15/2018 COVID-19 Vaccine (1 - 2023-2 5 season) 2024 Influenza Vaccine (FLU shot) (#1) 2024 Pap Smear 05/10/2027 05/10/2024, 04/01/2021, 11/24/2017 DTap/Tdap [...] Not on filedocumented as of this encounter Procedures Procedure Name Priority Date/Time Associated Diagnosis Comments 100-G GESTATIONAL GLUCOSE, 3 HOUR Routine 09/15/2024 11:55 AM EST Abnormal glucose tolerance in mother complicating 100-G GESTATIONAL GLUCOSE, 2 HOUR Routine 09/15/2024 10:55 AM EST Abnormal glucose tolerance in mother complicating 100-G GESTATIONAL GLUCOSE, 1 HOUR Routine 09/15/2024 9:56 AM EST Abnormal glucose tolerance in mother complicating GESTATIONAL GLUCOSE TOLERANCE, 3 HOUR Routine 09/15/2024 8:54 AM EST Abnormal glucose tolerance in mother complicating 100-G GESTATIONAL GLUCOSE, FASTING Routine 09/15/2024 8:54 AM EST Abnormal glucose tolerance in mother complicating documented in this encounter Results * 100-G GESTATIONAL GLUCOSE, 3 HOUR (09/15/2024 11:55 AM EST) 100-g Gestational Glucose, 3 Hour 81 70 - 139 mg/dL 09/15/2024 1:50 PM EST [facility] [place] [facility] Blood Venous blood specimen / Unknown Venipuncture / Unknown 09/15/2024 11:55 AM EST 09/15/2024 11:55 AM EST us Chelsy ARCE LAB BLOOD ORDERABLES Final Re sult [facility] [place] [facility] [address] [place] [address] * 100-G GESTATIONAL GLUCOSE, 2 HOUR (09/15/2024 10:55 AM EST) 100-g Gestational Glucose, 2 Hour 132 70 - 154 mg/dL 09/15/2024 12:02 PM EST [facility] [place] [facility] Blood Venous blood specimen / Unknown Venipuncture / Unknown 09/15/2024 10:55 AM EST 09/15/2024 10:55 AM EST us Chelsy ARCE LAB BLOOD ORDERABLES Final Re sult [facility] [place] [facility] [address] [place] [address] * 100-G GESTATIONAL GLUCOSE, 1 HOUR (09/15/2024 9:56 AM EST) 100-g Gestational Glucose, 1 Hour 110 70 - 179 mg/dL 09/15/2024 11:39 AM EST [facility] [place] [facility] Blood Venous blood specimen / Unknown Venipuncture / Unknown 09/15/2024 9:56 AM EST 09/15/2024 9:56 AM EST Chelsy ARCE LAB BLOOD ORDERABLES Final Re sult [facility] [place] [facility] [address] [place] [address] * 100-G GESTATIONAL GLUCOSE, FASTING (09/15/2024 8:54 AM EST) 100-g Gestational Glucose, Fasting 83 70 - 94 mg/dL 09/15/2024 10:02 AM EST [facility] [place] [facility] Blood Venous blood specimen / Unknown Venipuncture / Unknown 09/15/2024 8:54 AM EST 09/15/2024 8:54 AM EST Narrative [facility] [place] [facility] - 09/15/2024 10:02 AM EST Based on ACOG guideline, gestational diabetes mellitus is diagnosed when any of the following is met: Fasting is greater than or equal to 95 mg/dL 1 hour is greater than or equal to 180 mg/dL 2 hour is greater than or equal to 155 mg/dL 3 hour is greater than or equal to 140 mg/dL Chelsy ARCE LAB BLOOD ORDERABLES Final Re sult [facility] [place] [facility] [place] [address] documented in this encounter Visit Diagnoses Diagnosis Abnormal glucose tolerance in mother complicating Abnormal maternal glucose tolerance, complicating , childbirth, or the puerperium, unspecified as to episode of care documented in this encounter Care Teams Quebracho Tanner Relationship Specialty Start Date End Date John Mcgee MD [address] [place] [address] PCP - General Family Medicine 11/24/17 documented as of this encounter
--- OUTSIDE RECORDS SUMMARY | 2024-11-30 04:27 | External Medical Summary ---
Author Name Unknown Address Unknown Organization [facility] [place] [facility] - [address] [place] [address] Laboratory Report Ordering Provider Test Date Status SUBHASH STEPHENS 09/15/2024 11:55:53 Final Observation Date Value Abnormality Reference (Units ) Status Glucose [Mass/volume] in Serum or Plasma --3 hours post dose glucose 09/15/2024 11:55:53 81 70-139 (mg/dL) Final Performing Location [facility] [place] [facility] 0 - [address] [place] [address]
--- OUTSIDE RECORDS SUMMARY | 2024-11-30 04:27 | External Medical Summary | Summary of Care ---
Author Name Unknown Organization [facility] Address [address] [place] [address] Phone [phone] Care Team Providers Care Nipple Maker Name Role Phone John Mcgee MD Primary Care Provider [phone] Reason for Visit * Reason Comments Outpatient Testing Encounter Details Date Type Department Care Team (Late st Contact Info) Description 09/08/2024 12:50 PM EST Laboratory Laboratory [address] [place] [phone] [place] [address] Normal in second trimester Allergies Active Allergy Reactions Criticality Noted Date Comments Amoxicillin 04/05/2019 documented as of this encounter (statuses as of 09/08/2024) Medications Forte Oral Tablet Take by mouth. [...] as of this encounter (statuses as of 09/08/2024) Active Problems Problem Noted Date Diagnosed Date Normal 05/10/2024 Obesity in , antepartum 05/10/2024 Overview (06/07/2024): Class 1 The patient's pre-gravid BMI is 34.45. Normal early GTT Estimated Date of Delivery Comme nts Yes 12/01/2024 Based on Ultraso und documented as of this encounter (statuses as of 09/08/2024) Resolved Problems Problem Noted Date Diagnosed Date [...] as of this encounter (statuses as of 09/08/2024) Immunizations Name Administration Dates Next Due TDAP (age 10 and older)(Boostrix) 08/20/2021,03/2019 documented as of this encounter Social History [...] money to get more. 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 on file Not on file Not on file documented as of this encounter Plan of Treatment Upcoming Encounters Date Type Department Care Team (Late st Contact Info) Description 09/15/2024 10:30 AM EST Office Visit Gynecology/Obstetrics [facility] [address] [place] [address] Chelsy Flowers CRNP [address] [place] [address] Pending Results Name Type Priority Associated Diagnoses Date /Time 50-G GESTATIONAL GLUCOSE, 1 HOUR Lab Routine Normal in second trimester 09/08/2024 1:51 PM EST CBC WITH WBC DIFFERENTIAL AND ANEMIA REFLEX WORKUP Lab Routine Normal in second trimester 09/08/2024 1:51 PM EST SYPHILIS ANTIBODY SCREEN WITH REFLEX TO RPR Lab Routine Normal in second trimester 09/08/2024 1:51 PM EST ANEMIA CBC Lab Routine Normal in second trimester 09/08/2024 1:51 PM EST DIFFERENTIAL, AUTOMATED Lab Routine Normal in second trimester 09/08/2024 1:51 PM EST ANEMIA REFLEX CHEMISTRY HOLD Lab Routine Normal in second trimester 09/08/2024 1:51 PM EST SYPHILIS ANTIBODY SCREEN Lab Routine Normal in second trimester 09/08/2024 1:51 PM EST Health Maintenance Due Date Last Done Comments Hepatitis B Vaccine (1 of 3 - 19+ 3-dose series) 2014 Depression Screening 11/16/2019 11/15/2018 COVID-19 Vaccine ( - 2023-2 5 season) 2024 Influenza Vaccine (FLU shot) (#1) 2024 Pap Smear 05/10/2027 05/10/2024, 04/01/2021, 11/24/2017 DTap/Tdap Vaccines (3 - Td o r Tdap) 08/20/2031 08/20/2021, 12/14/2018 Gonorrhea / Chlamydia Screen Discontinued [...] this encounter Visit Diagnoses Diagnosis Normal in second trimester documented in this encounter Care Teams Nipple Maker Relationship Specialty Start Date End Date John Mcgee MD [address] [place] [address] PCP - General Family Medicine 11/24/17 documented as of this encounter
--- OUTSIDE RECORDS SUMMARY | 2024-11-30 04:27 | External Medical Summary | Summary of Care ---
Author Name Unknown Organization [facility] Address [address] [place] [address] Phone [phone] Care Team Providers Care Sugar Boiler Name Role Phone John Mcgee MD Primary Care Provider + [phone] Reason for Visit * Reason Comments Return Visit Encounter Details Date Type Department Care Team (Late st Contact Info) Description 10/11/2024 11:45 AM EST Office Visit Gynecology/Obstetric s [facility] [address] [place] [address] Lyssa Perez CRNP [address] [place] [address] Normal in third trimester*; Obesity in , antepartum Allergies Active Allergy Reactions Criticality Noted Date Comments Amoxicillin 04/05/2019 documented as of this encounter (statuses as of 10/11/2024) Medications Forte Oral Tablet Take by mouth. Act maria antonia Omeprazole 20 MG Oral Capsule Delayed Release (PriLOSEC) Take 1 Capsule by mouth in the morning. Active Fluticasone Propionate 50 MCG/ACT Nasal Suspension (Flonase) INSTILL 2 SPRAY(S) IN EACH NOSTRIL ONCE DAILY 4 Active Azithromycin 250 MG Oral Tablet (Zithromax) azithromycin 250 mg tablet 4 025 Discontin ued(Medic ation List Clean Up) documented as of this encounter (statuses as of 10/11/2024) Active Problems Problem Noted Date Diagnosed Date Normal 05/10/2024 Obesity in , antepartum 05/10/2024 Overview (06/07/2024): Class 1 The patient's pre-gravid BMI is 34.45. Normal early GTT Estimated Date of Delivery Comme nts Yes 12/01/2024 Based on Ultraso und documented as of this encounter (statuses as of 10/11/2024) Resolved Problems Problem Noted Date Diagnosed Date [...] as of this encounter (statuses as of 10/11/2024) Immunizations Name Administration Dates Next Due TDAP [...] money to get more. 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 No ctx, leaking/bleeding. Plans to use POPs . Has a breast pump. 2 week return YAZMIN Dexter * Tanisha Bruner LPN - 10/11/2024 11:28 AM EST 32w5d Denies vaginal bleeding/rom + movement No new concerns documented in this encounter Plan of Treatment Upcoming Encounters Date Type Department Care Team (Late st Contact Info) Description 10/30/2024 11:45 AM EDT Office Visit Gynecology/Obstetrics [facility] [address] [place] [address] Ailyn Lyles PA-C [address] [place] [address] 11/08/2024 9:45 AM EDT Office Visit Gynecology/Obstetrics [facility] [address] [place] [address] Chelsy Flowers CRNP [address] [place] [address] 11/17/2024 11:30 AM EDT Office Visit Gynecology/Obstetrics [facility] [address] [place] [address] Lyssa Perez CRNP [address] [place] [address] 11/24/2024 11:45 AM EDT Office Visit Gynecology/Obstetrics [facility] [address] [place] [address] Lyssa Perez CRNP [address] [place] [address] Health Maintenance Due Date Last Done Comments [...] complication documented in this encounter Care Teams Sugar Boiler Relationship Specialty Start Date End Date John Mcgee MD [address] [place] [address] PCP - General Family Medicine 11/24/17 documented as of this encounter
--- OUTSIDE RECORDS SUMMARY | 2024-11-30 04:27 | External Medical Summary ---
Author Name Unknown Address Unknown Organization [facility] [place] [facility] - [address] [place] [address] Laboratory Report Ordering Provider Test Date Status SUBHASH STEPHENS 09/15/2024 10:55:51 Final Observation Date Value Abnormality Reference (Units ) Status Glucose, 2-hr post glucose challenge 09/15/2024 10:55:51 132 70-154 (mg/dL) Final Performing Location [facility] [place] [facility]-1 0 - [address] [place] [address]
--- OUTSIDE RECORDS SUMMARY | 2024-11-30 04:27 | External Medical Summary ---
Author Name Unknown Address Unknown Organization [facility] [place] [facility] - [address] [place] [address] Laboratory Report Ordering Provider Test Date Status KATSUBHASH 09/15/2024 08:54:22 Final Based on ACOG guideline, ges tational diabetes mellitus is diagnosed when any of the following is met:
Fasting is greater than or equal to 95 mg/dL
1 hour is greater than or equal to 180 mg/dL
2 hour is greater than or equal to 155 mg/dL
3 hour is greater than or equal to 140 mg/dL Observation Date Value Abnormality Reference (Units ) Status Glucose, fasting 09/15/2024 08:54:22 83 70- 94 (mg/dL) Final Performing Location [facility] [place] [facility] 0 - [address] [place] [address]
--- OUTSIDE RECORDS SUMMARY | 2024-11-30 04:27 | External Medical Summary | Summary of Care ---
Author Name Unknown Organization [facility] Address [address] [place] [address] Phone [phone] Care Team Providers Care Regulatory Scientist Name Role Phone John Mcgee MD Primary Care Provider + [phone] Reason for Visit * Reason Comments Return Visit Encounter Details Date Type Department Care Team (Late st Contact Info) Description 09/15/2024 10:30 AM EST Office Visit Gynecology/Obstetric s [facility] [address] [place] [address] Chelsy Flowers CRNP [address] [place] [address] Normal in third trimester*; Obesity in , antepartum; Need for vxmpmqlolk-behsawz-xi rtussis (Tdap) vaccine Allergies Active Allergy Reactions Criticality Noted Date [...] money to get more. 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 Patient doing well no complaints. Injection given IM as ordered. Patient tolerated well. Patient to follow up as directed. Patient instructed to call if any complications. Patient verbalized understanding of instructions given and her follow up appt for [facility] in 2 weeks Injection site: Left Deltoid Medication Source: Dispensed stock medication * Chelsy Flowers CRNP - 09/15/2024 10:31 AM EST 29w No concerns. Baby is active. Denies contractions, bleeding, LOF. Completing 3hr GTT today. TDAP today. YAZMIN Ramirez * Arabella Fishman CMA - 09/15/2024 10:18 AM EST 29w0d Denies any concerns TDAP vaccine today documented in this encounter Plan of Treatment Upcoming Encounters Date Type Department Care Team (Late st Contact Info) Description 09/27/2024 11:45 AM EST Office Visit Gynecology/Obstetrics [facility] [address] [place] [address] Freddie Barbour MD [address] [place] [address] Health Maintenance Due Date Last Done Comments [...] or the puerperium, antepartum condition or complication Need for phxdwmvjpv-yrasmoy-jyacagvyq (Tdap) vaccine Need for prophylactic vaccination with combined gjxkxgvelz-nbfbevp-gwfbshmtp (DTP) vaccine documented in this encounter Care Teams Regulatory Scientist Relationship Specialty Start Date End Date John Mcgee MD [address] [place] [address] PCP - General Family Medicine 11/24/17 documented as of this encounter
--- OUTSIDE RECORDS SUMMARY | 2024-11-30 04:27 | External Medical Summary | Summary of Care ---
Author Name Unknown Organization [facility] Address [address] [place] [address] Phone [phone] Care Team Providers Care Command Center Officer Name Role Phone John Mcgee MD Primary Care Provider + [phone] Reason for Visit * Reason Comments Return Visit Encounter Details Date Type Department Care Team (Late st Contact Info) Description 10/30/2024 11:45 AM EDT Office Visit Gynecology/Obstetric s [facility] [address] [place] [address] Ailyn Lyles PA-C [address] [place] [address] Normal in third trimester*; Obesity in , antepartum Allergies Active Allergy Reactions Criticality Noted Date Comments Amoxicillin 04/05/2019 documented as of this encounter (statuses as of 10/30/2024) Medications Forte Oral Tablet Take by mouth. Active Omeprazole 20 MG Oral Capsule Delayed Release (PriLOSEC) Take 1 Capsule by mouth in the morning. Active Fluticasone Propionate 50 MCG/ACT Nasal Suspension (Flonase) INSTILL 2 SPRAY(S) IN EACH NOSTRIL ONCE DAILY 08/08/2024 Active documented as of this encounter (statuses as of 10/30/2024) Active Problems Problem Noted Date Diagnosed Date Normal 05/10/2024 Obesity in , antepartum 05/10/2024 Overview (06/07/2024): Class 1 The patient's pre-gravid BMI is 34.45. Normal early GTT Estimated Date of Delivery Comme nts Yes 12/01/2024 Based on Ultraso und documented as of this encounter (statuses as of 10/30/2024) Resolved Problems Problem Noted Date Diagnosed Date [...] as of this encounter (statuses as of 10/30/2024) Immunizations Name Administration Dates Next Due TDAP [...] money to get more. 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 Occasional vaginal itching, improves with bathing. No present symptoms. Denies VB, LOF, or regular contractions. Pos fm. Reviewed GBS next visit RTC in 1 week Ailyn Lyles PA-C * Tanisha Bruner LPN - 10/30/2024 11:33 AM EDT 35w3d Denies vaginal bleeding/rom + movement documented in this encounter Plan of Treatment Upcoming Encounters Date Type Department Care Team (Late st Contact Info) Description 11/08/2024 9:45 AM EDT Office Visit Gynecology/Obstetrics [facility] [address] [place], [place] [address] Chelsy Flowers CRNP [address] [place], [place] [address] 11/17/2024 11:30 AM EDT Office Visit [facility] [address] [place] [address] Lyssa Perez CRNP [address] [place] [address] 11/24/2024 11:45 AM EDT Office Visit [facility] [address] [place] [address] BackLyssa whitley CRNP [address] [place] [address] 12/01/2024 11:45 AM EDT Office Visit Gynecology/Obstetrics [facility] [address] [place] [address] BackLyssa whitley CRNP [address] [place] [address] Health Maintenance Due Date Last Done Comments Hepatitis B Vaccine (1 of 3 - 19+ 3-dose series) 2014 Lipid Panel 2015 Depression Screening 11/16/2019 11/15/2018 COVID-19 Vaccine (1 [...] complication documented in this encounter Care Teams Command Center Officer Relationship Specialty Start Date End Date John Mcgee MD [address] [place] [address] PCP - General Family Medicine 11/24/17 documented as of this encounter
--- OUTSIDE RECORDS SUMMARY | 2024-11-30 04:27 | External Medical Summary ---
Author Name Unknown Address Unknown Organization K0G:[facility] [place] [facility] [address] - [address] [place] [address] Laboratory Report Ordering Provider Test Date Status SUBHASH STEPHENS 09/15/2024 09:56:07 Final Observation Date Value Abnormality Reference (Units ) Status Glucose [Mass/volume] in Serum or Plasma --1 hour post dose glucose 09/15/2024 09:56:07 110 70-179 (mg/dL) Final Performing Location [facility]ORY [facility] [place] [address] 0 - [address] [place] [address]
--- OUTSIDE RECORDS SUMMARY | 2024-11-30 04:27 | External Medical Summary | Summary of Care ---
Author Name Unknown Organization [facility] Address [address] [place] [address] Phone [phone] Care Team Providers Care Glue Mill Operator Name Role Phone John Mcgee MD Primary Care Provider + [phone] Reason for Visit * Reason Comments Return Visit Encounter Details Date Type Department Care Team (Late st Contact Info) Description 09/27/2024 11:45 AM EST Office Visit [facility]necology[facility] [place] [address] Freddie Barbour MD [address] [place] [address] Normal in third trimester*; Obesity in , antepartum Allergies Active Allergy Reactions Criticality Noted Date Comments Amoxicillin 04/05/2019 documented as of this encounter (statuses as of 09/27/2024) Medications Forte Oral Tablet Take by mouth. [...] as of this encounter (statuses as of 09/27/2024) Active Problems Problem Noted Date Diagnosed Date Normal 05/10/2024 Obesity in , antepartum 05/10/2024 Overview (06/07/2024): Class 1 The patient's pre-gravid BMI is 34.45. Normal early GTT Estimated Date of Delivery Comme nts Yes 12/01/2024 Based on Ultraso und documented as of this encounter (statuses as of 09/27/2024) Resolved Problems Problem Noted Date Diagnosed Date [...] as of this encounter (statuses as of 09/27/2024) Immunizations Name Administration Dates Next Due TDAP [...] money to get more. 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 Not on file Not on file documented as of this encounter Last Filed Vital Signs Vital Sign Reading Time Taken Comments Blood Pressure 112/64 09/27/2024 12:03 PM EST Pulse - - Temperature - - Respiratory Rate - - Oxygen Saturation - - Inhaled Oxygen Concentration - - Weight 101.6 kg (224 lb) 09/27/2024 12:03 PM EST Height 165.1 cm (5' 5") 09/27/2024 12:03 PM EST Body Mass Index 37.28 09/27/2024 12:03 PM EST documented in this encounter Progress Notes * Freddie Barbour MD - 09/27/2024 12:22 PM EST Pt doing well No complaints RTC 2 weeks * Anny Hussein LPN - 09/27/2024 12:03 PM EST 30w5d Denies any concerns documented in this encounter Plan of Treatment Upcoming Encounters Date Type Department Care Team (Late st Contact Info) Description 10/11/2024 11:45 AM EST Office Visit Gynecology/Obstetrics Nena [facility] [address] [place] [address] YinkaerLyssa CRNP [address] [place] [address] Health Maintenance Due Date Last Done Comments Hepatitis B Vaccine (1 of 3 - 19+ 3-dose series) 2014 Depression Screening 11/16/2019 11/15/2018 COVID-19 Vaccine (2023-2 5 season) 2024 Influenza [...] complication documented in this encounter Care Teams Glue Mill Operator Relationship Specialty Start Date End Date John Mcgee MD [address] [facility] [place] [address] PCP - General Family Medicine 11/24/17 documented as of this encounter
--- OUTSIDE RECORDS SUMMARY | 2024-11-30 04:28 | External Medical Summary | Summary of Care ---
Author Name Unknown Organization [facility] Address [address] [place] [address] Phone [phone] Care Team Providers Care Production Control Technologist Name Role Phone John Mcgee MD Primary Care Provider + [phone] Reason for Visit * Reason Onset Date Comments Medication Refill 09/08/2024 Encounter Details Date Type Department Care Team (Late st Contact Info) Description 09/08/2024 Refill Gynecology/Obstetrics [facility] [address] [place] [address] Chelsy Flowers CRNP [address] [facility] [place] [address] Allergies Active Allergy Reactions Criticality Noted Date [...] money to get more. 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
--- OUTSIDE RECORDS SUMMARY | 2024-11-30 04:28 | External Medical Summary | Summary of Care ---
Author Name Unknown Organization [facility] Address [address] [place] [address] Phone [phone] Care Team Providers Care Land Management Supervisor Name Role Phone John Mcgee MD Primary Care Provider + [phone] Encounter Details Date Type Department Care Team (Late st Contact Info) Description 05/03/2024 Telephone Gynecology/Obstetrics [place] [address] [place] [address] Backer, YAZMIN Mcintyre [address] [facility] [place] [address] Allergies Active Allergy Reactions Criticality Noted Date Comments Amoxicillin 04/05/2019 documented as of this encounter (statuses as of 08/02/2024) Medications Forte Oral Tablet Take by mouth. Active Omeprazole 20 MG Oral Capsule Delayed Release (PriLOSEC) Take 1 Capsule by mouth in the morning. Active documented as of this encounter (statuses as of 08/02/2024) Active Problems Problem Noted Date Diagnosed Date Normal 05/10/2024 Obesity in , antepartum 05/10/2024 Overview (06/07/2024): Class 1 The patient's pre-gravid BMI is 34.45. Normal early GTT Estimated Date of Delivery Comme nts Yes 12/01/2024 Based on Ultraso und documented as of this encounter (statuses as of 08/02/2024) Resolved Problems Problem Noted Date Diagnosed Date [...] as of this encounter (statuses as of 08/02/2024) Immunizations Name Administration Dates Next Due TDAP [...] money to get more. 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 Pt called in and someone cancelled the wrong US. Pt needs US prior to provider visit not after. Please call pt back and get us scheduled correctly documented in this encounter Plan of Treatment Upcoming Encounters Date Type Department Care Team (Late st Contact Info) Description 08/03/2024 10:30 AM EST Office Visit [facility] [address] [place] [address] Chelsy Flowers CRNP [address] [place] [address] Health Maintenance Due Date Last Done Comments [...] 5 Years) and At-Risk Patients (6 to 64 Years) Aged Out No longer eligible based on patient's age to complete this topic documented as of this encounter Medical Devices Not on filedocumented as of this encounter Care Teams Land Management Supervisor Relationship Specialty Start Date End Date John Mcgee MD [address] [place] [address] PCP - General Family Medicine 11/24/17 documented as of this encounter
--- OUTSIDE RECORDS SUMMARY | 2024-11-30 04:28 | External Medical Summary ---
Author Name Unknown Address Unknown Organization K0G:[facility] [place] [address] - [address] [place] [address] Laboratory Report Ordering Provider Test Date Status RADHA RAPHAEL 06/07/2024 10:19:14 Final Observation Date Value Abnormality Reference (Units ) Status Glucose [Moles/volume] in Serum or Plasma --1 hour post 50 g glucose PO 06/07/2024 10:19:14 106 70-129 (mg/dL) Final Performing Location [facility]ORY [facility] [place] [address] - [address] [place] [address]
--- OUTSIDE RECORDS SUMMARY | 2024-11-30 04:28 | External Medical Summary ---
Author Name Unknown Address Unknown Organization K01:[facility] [place] [address] [place] [address] Laboratory Report Ordering Provider Test Date Status SUBHASH STEPHENS 09/08/2024 13:51:46 Final Observation Date Value Abnormality Reference (Units ) Status Treponema pallidum Ab [Presence] in Serum by Immunoassay 09/08/2024 13:51:46 Nonreactive Nonreactive Final No serologic evidence of syp hilis. No additional testing clinicially indicated at this time. Consider repeat testing in 2-4 weeks if acute or primary syphilis is suspected. Performing Location [facility] [place] [address] [place] [address]
--- OUTSIDE RECORDS SUMMARY | 2024-11-30 04:28 | External Medical Summary | Summary of Care ---
Author Name Unknown Organization [facility] Address [address] [place] [address] Phone [phone] Care Team Providers Care Construction Safety Manager Name Role Phone John Mcgee MD Primary Care Provider + [phone] Reason for Visit * Reason Comments Return Visit Encounter Details Date Type Department Care Team (Late st Contact Info) Description 08/31/2024 10:30 AM EST Office Visit Gynecology/Obstetric s [facility] [address] [facility] [place] [address] Chelsy Flowers CRNP [address] [facility] [place] [address] Normal in second trimester*; Obesity in , antepartum Allergies Active Allergy Reactions Criticality Noted Date Comments Amoxicillin 04/05/2019 documented as of this encounter (statuses as of 08/31/2024) Medications Forte Oral Tablet Take by mouth. [...] as of this encounter (statuses as of 08/31/2024) Active Problems Problem Noted Date Diagnosed Date Normal 05/10/2024 Obesity in , antepartum 05/10/2024 Overview (06/07/2024): Class 1 The patient's pre-gravid BMI is 34.45. Normal early GTT Estimated Date of Delivery Comme nts Yes 12/01/2024 Based on Ultraso und documented as of this encounter (statuses as of 08/31/2024) Resolved Problems Problem Noted Date Diagnosed Date [...] as of this encounter (statuses as of 08/31/2024) Immunizations Name Administration Dates Next Due TDAP [...] money to get more. 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 Good FM. No contractions, bleeding, or LOF. Glucola with next visit. YAZMIN Ramirez * Arabella Fishman CMA - 08/31/2024 10:28 AM EST 26w6d Denies any concerns documented in this encounter Plan of Treatment Upcoming Encounters Date Type Department Care Team (Late st Contact Info) Description 09/15/2024 10:30 AM EST Office Visit Gynecology/Obstetrics [facility] [address] [place] [address] Chelsy Flowers CRNP [address] [place] [address] Scheduled Orders Name Type Priority Associated Diagnoses Orde r Schedule 50-G GESTATIONAL GLUCOSE, 1 HOUR Lab Routine Normal in second trimester Expected: 08/31/2024 (Approximate), Expires: 08/31/2025 CBC WITH WBC DIFFERENTIAL AND ANEMIA REFLEX WORKUP Lab Routine Normal in second trimester Expected: 08/31/2024 (Approximate), Expires: 08/31/2025 SYPHILIS ANTIBODY SCREEN WITH REFLEX TO RPR Lab Routine Normal in second trimester Expected: 08/31/2024 (Approximate), Expires: 08/31/2025 Health Maintenance Due Date Last Done Comments [...] encounter Visit Diagnoses Diagnosis Normal in second trimester- Primary Obesity in , antepartum Obesity complicating , childbirth, or the puerperium, antepartum condition or complication documented in this encounter Care Teams Construction Safety Manager Relationship Specialty Start Date End Date John Mcgee MD [address] [place] [address] PCP - General Family Medicine 11/24/17 documented as of this encounter
--- OUTSIDE RECORDS SUMMARY | 2024-11-30 04:28 | External Medical Summary | Summary of Care ---
Author Name Unknown Organization [facility] [address] [facility] [address] Phone [phone] Care Team Providers Care Communication Manager Name Role Phone John Mcgee MD Primary Care Provider Reason for Visit * Reason Comments Return Visit Encounter Details Date Type Department Care Team (Late st Contact Info) Description 06/07/2024 9:30 AM EDT Office Visit Gynecology/Obstetric s [facility] [address] [place] [address] Chelsy Flowers CRNP [address] [place] [address] Normal in second trimester*; Obesity in , antepartum Allergies Active Allergy Reactions Criticality Noted Date Comments Amoxicillin 04/05/2019 documented as of this encounter (statuses as of 06/07/2024) Medications Medication Sig Dispensed Refills Start Date End Date Status Forte Oral Tablet Take by mouth. Active Omeprazole 20 MG Oral Capsule Delayed Release (PriLOSEC) Take 1 Capsule by mouth in the morning. Active documented as of this encounter (statuses as of 06/07/2024) Active Problems Problem Noted Date Diagnosed Date Normal 05/10/2024 Obesity in , antepartum 05/10/2024 Overview: Class 1 The patient's pre-gravid BMI is 34.45. Estimated Date of Delivery Comme nts Yes 12/01/2024 Based on Ultraso und documented as of this encounter (statuses as of 06/07/2024) Resolved Problems Problem Noted Date Diagnosed Date Resolved Date Antepartum anemia complicating 09/03/2021 12/02/2021 Overview: Hemoglobin 11.2 on 08/20/21 Supervision of other normal 04/01/2021 12/02/2021 Obesity, Class II, BMI 35-39 .9, isolated (see actual BMI) 04/01/2021 12/02/2021 Overview: Early glucola Growth u/s every 4 weeks after 20wk History of precipitous labor and delivery 04/01/2021 12/02/2021 Overview: First labor approximately 2.5hours Insulin resistance complicating 07/13/2018 02/21/2019 Overview: Stop metformin at 12wks, do early 1hr gtt after stopping metformin- normal Supervision of normal first 07/13/2018 02/21/2019 Overview: 12/14/2018 Tdap Vaccine administered per clinic protocol. Pt given VIS(vaccine information sheet) Janna Vidal RN documented as of this encounter (statuses as of 06/07/2024) Immunizations Name Administration Dates Next Due TDAP [...] money to get more. Never true 04/19/2024 [place] Depression Scale Answer Date Recorded [place] Depression Scale Total 0 05/10/2024 The thought [...] Assigned at Female 04/19/2024 12:32 PM EDT Gender Identity Female 04/19/2024 12:32 PM EDT Sexual Orientation Straight 04/19/2024 12 :32 PM EDT Job Start Date Occupation Industry Not on file Not on file Not on file documented as of this encounter Last Filed Vital Signs Vital Sign Reading Time Taken Comments Blood Pressure 106/68 06/07/2024 9:25 AM EDT Pulse - - Temperature - - Respiratory Rate - - Oxygen Saturation - - Inhaled Oxygen Concentration - - Weight 94.8 kg (209 lb) 06/07/2024 9:25 AM EDT Height - - Body Mass Index 34.78 05/10/2024 12:51 PM EDT documented in this encounter Progress Notes * Chelsy Flowers CRNP - 06/07/2024 9:39 AM EDT 14w5d No concerns. Denies n/v, bleeding. Not interested in NIPT. Early glucola today. YAZMIN Ramirez * Arabella Fishman CMA - 06/07/2024 9:25 AM EDT 14w5d Denies any concerns documented in this encounter Plan of Treatment Upcoming Encounters Date Type Department Care Team (Late st Contact Info) Description 07/03/2024 2:15 PM EST [facility] [address] [place] [address] Chelsy Flowers CRNP [address] [place] [address] Health Maintenance Due Date Last Done Comments [...] complication documented in this encounter Care Teams Communication Manager Relationship Specialty Start Date End Date John Mcgee MD [address] [place] [address] PCP - General Family Medicine 11/24/17 documented as of this encounter
--- OUTSIDE RECORDS SUMMARY | 2024-11-30 04:28 | External Medical Summary ---
Author Name Unknown Address Unknown Organization K[facility] [place] [address] [place] [address] Laboratory Report Ordering Provider Test Date Status STEPHEN STEPHENSKIANA 09/08/2024 13:51:46 Final Observation Date Value Abnormality Reference (Units ) Status SYNC LEUKOCYTES IN BLOOD BY AUTOMATED COUNT 09/08/2024 13:51:46 9.33 4.00-10.80 (K/uL) Final Segs 09/08/2024 13:51:46 71.9 40.0-75.0 (%) Final Lymphs % 09/08/2024 13:51:46 21.3 18.0-42.0 (%) Final Monos 09/08/2024 13:51:46 4.4 1.0-11.0 (%) Final Eosinophils 09/08/2024 13:51:46 0.5 0.0-6.0 (%) Final Basos 09/08/2024 13:51:46 0.2 0.0-2.0 (%) Final Immature Granulocyte, Percent 09/08/2024 13:51:46 1.7 0.0-2.0 (%) Final Absolute Segs 09/08/2024 13:51:46 6.70 1.80-7.70 (K/uL) Final Lymphs, absolute 09/08/2024 13:51:46 1.99 1.00-4.80 (K/ul) Final Monos, Abs 09/08/2024 13:51:46 0.41 0.00-1.10 (K/uL) Final Eos, Abs 09/08/2024 13:51:46 0.05 0.00-0.70 (K/uL) Final Basos, Abs 09/08/2024 13:51:46 0.02 0.00-0.20 (K/uL) Final Immature Granulocytes, Number 09/08/2024 13:51:46 0.16 0.00-0.20 (K/uL) Final Performing Location [facility] [place] [address] [facility] [address]
--- OUTSIDE RECORDS SUMMARY | 2024-11-30 04:28 | External Medical Summary | Summary of Care ---
Author Name Unknown Organization [facility] Address [address] [place] [place] [address] Phone [phone] Care Team Providers Care Devops Developer Name Role Phone John Mcgee MD Primary Care Provider Reason for Visit * Reason Comments Outpatient Testing Encounter Details Date Type Department Care Team (Late st Contact Info) Description 06/07/2024 9:20 AM EDT Laboratory Laboratory, [facility] [address] [place] [id number] [facility] [address] [place] [address] Arrived Allergies Active Allergy Reactions Criticality Noted Date [...] money to get more. Never true 04/19/2024 [place] Depression Scale Answer Date Recorded [place] Depression Scale Total 0 05/10/2024 The thought [...] 07/03/2024 2:15 PM EST Office Visit Gynecology/Obstetrics [facility] [address] [place] [address] Chelsy Flowers CRNP [address] [place] [address] Health Maintenance Due Date Last Done Comments [...] filedocumented as of this encounter Care Teams Devops Developer Relationship Specialty Start Date End Date John Mcgee MD [address] [facility] [address] PCP - General Family Medicine 11/24/17 documented as of this encounter
--- OUTSIDE RECORDS SUMMARY | 2024-11-30 04:28 | External Medical Summary | Summary of Care ---
Author Name Unknown Organization [facility] Address [address] [place] [address] Phone [phone] Care Team Providers Care Dean Of Education Name Role Phone John Mcgee MD Primary Care Provider + [phone] Reason for Visit * Reason Comments Return Visit Encounter Details Date Type Department Care Team (Late st Contact Info) Description 07/03/2024 2:15 PM EST Office Visit Gynecology/Obstetric s [facility] [address] [place] [address] Chelsy Flowers CRNP [address] [facility] [place] [address] Normal in second trimester*; Obesity in , antepartum Allergies Active Allergy Reactions Criticality Noted Date Comments Amoxicillin 04/05/2019 documented as of this encounter (statuses as of 07/03/2024) Medications Forte Oral Tablet Take by mouth. Active Omeprazole 20 MG Oral Capsule Delayed Release (PriLOSEC) Take 1 Capsule by mouth in the morning. Active documented as of this encounter (statuses as of 07/03/2024) Active Problems Problem Noted Date Diagnosed Date Normal 05/10/2024 Obesity in , antepartum 05/10/2024 Overview (06/07/2024): Class 1 The patient's pre-gravid BMI is 34.45. Normal early GTT Estimated Date of Delivery Comme nts Yes 12/01/2024 Based on Ultraso und documented as of this encounter (statuses as of 07/03/2024) Resolved Problems Problem Noted Date Diagnosed Date [...] as of this encounter (statuses as of 07/03/2024) Immunizations Name Administration Dates Next Due TDAP [...] money to get more. 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 Unsure if feeling movement. Denies bleeding. Anatomy u/s in 2 weeks. YAZMIN Ramirez documented in this encounter Nursing Notes * Mary Ness LPN - 07/03/2024 2:15 PM EST 18w3d Denies concerns. documented in this encounter Plan of Treatment Upcoming Encounters Date Type Department Care Team (Late st Contact Info) Description 07/17/2024 9:30 AM EST Imaging Radiology [facility] [address] [facility] [place] [address] 08/03/2024 10:30 AM EST Office Visit Gynecology/Obstetrics [facility] [address] [facility] [place] [address] Chelsy Flowers CRNP [address] [facility] [place] [address] Scheduled Orders Name Type Priority Associated Diagnoses Orde r Schedule US PREG SINGLE/1ST GEST, 14 WEEKS OR LATER Medical Imaging Routine Normal in second trimester Expected: 07/17/2024 (Approximate), Expires: 08/02/2025 Health Maintenance Due Date Last Done Comments [...] complication documented in this encounter Care Teams Dean Of Education Relationship Specialty Start Date End Date John Mcgee MD [address] [facility] [place] [address] PCP - General Family Medicine 11/24/17 documented as of this encounter
--- OUTSIDE RECORDS SUMMARY | 2024-11-30 04:28 | External Medical Summary | Summary of Care ---
Author Name Unknown Organization [facility] Address [address] [place] [facility] [place] [address] Phone [phone] Care Team Providers Care Websphere Commerce Architect Name Role Phone John Mcgee MD Primary Care Provider Reason for Visit * Reason Comments Outpatient Testing Encounter Details Date Type Department Care Team (Late st Contact Info) Description 06/07/2024 9:20 AM EDT Laboratory Laboratory, [facility] [address] [place] [id number] [facility] [address] [facility] [address] Normal in first trimester; Obesity in , antepartum Allergies Active Allergy [...] money to get more. Never true 04/19/2024 [place] Depression Scale Answer Date Recorded [place] Depression Scale Total 0 05/10/2024 The thought [...] Upcoming Encounters Date Type Department Care Team ([facility] st Contact Info) Description 07/03/2024 2:15 PM EST Office Visit Gynecology/Obstetrics [facility] [address] [place] [address] Chelsy Flowers CRNP [address] [place] [address] Pending Results Name Type Priority Associated Diagnoses Date /Time 50-G GESTATIONAL GLUCOSE, 1 HOUR Lab Routine Normal in first trimester Obesity in , antepartum 06/07/2024 10:19 AM EDT Health Maintenance Due Date Last Done Comments [...] this encounter Visit Diagnoses Diagnosis Normal in first trimester Obesity in , antepartum Obesity complicating , childbirth, or the puerperium, antepartum condition or complication documented in this encounter Care Teams Websphere Commerce Architect Relationship Specialty Start Date End Date John Mcgee MD [address] [place] [address] PCP - General Family Medicine 11/24/17 documented as of this encounter
--- OUTSIDE RECORDS SUMMARY | 2024-11-30 04:28 | External Medical Summary | Summary of Care ---
Author Name Unknown Organization [facility] Address [address] [place] [address] Phone [phone] Care Team Providers Care Supply Chain Generalist Name Role Phone John Mcgee MD Primary Care Provider + [phone] Reason for Visit * Reason Comments Return Visit Encounter Details Date Type Department Care Team (Late st Contact Info) Description 08/03/2024 10:30 AM EST Office Visit Gynecology/Obstetric s [facility] [address] [place] [address] Chelsy Flowers CRNP [address] [place] [address] Normal in second trimester*; Obesity in , antepartum Allergies Active Allergy Reactions Criticality Noted Date Comments Amoxicillin 04/05/2019 documented as of this encounter (statuses as of 08/03/2024) Medications Forte Oral Tablet Take by mouth. Active Omeprazole 20 MG Oral Capsule Delayed Release (PriLOSEC) Take 1 Capsule by mouth in the morning. Active documented as of this encounter (statuses as of 08/03/2024) Active Problems Problem Noted Date Diagnosed Date Normal 05/10/2024 Obesity in , antepartum 05/10/2024 Overview (06/07/2024): Class 1 The patient's pre-gravid BMI is 34.45. Normal early GTT Estimated Date of Delivery Comme nts Yes 12/01/2024 Based on Ultraso und documented as of this encounter (statuses as of 08/03/2024) Resolved Problems Problem Noted Date Diagnosed Date [...] as of this encounter (statuses as of 08/03/2024) Immunizations Name Administration Dates Next Due TDAP [...] money to get more. 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 Recommend Sudafed. If not improving, needs to see PCP. No other concerns. +FM. No bleeding. YAZMIN Ramirez * Arabella Fishman CMA - 08/03/2024 10:34 AM EST 22w6d Has cold that won't go away, any suggestions? documented in this encounter Plan of Treatment Upcoming Encounters Date Type Department Care Team (Late st Contact Info) Description 08/31/2024 10:30 AM EST Office Visit Gynecology/Obstetrics [facility] [address] [place] [address] Chelsy Flowers CRNP [address] [place] [address] Health Maintenance Due Date Last Done Comments [...] complication documented in this encounter Care Teams Supply Chain Generalist Relationship Specialty Start Date End Date John Mcgee MD [address] [place] [address] PCP - General Family Medicine 11/24/17 documented as of this encounter
--- OUTSIDE RECORDS SUMMARY | 2024-11-30 04:28 | External Medical Summary ---
Author Name Unknown Address Unknown Organization [id number]:[facility] [place] - [address] [place] [address] Laboratory Report Ordering Provider Test Date Status SUBHASH STEPHENS 09/08/2024 13:51:46 Final Observation Date Value Abnormality Reference (Units ) Status Glucose [Moles/volume] in Serum or Plasma --1 hour post 50 g glucose PO 09/08/2024 13:51:46 143 Above high normal 70-129 (mg/dL) Final Performing Location [facility] - [address] [place] [address]
--- OUTSIDE RECORDS SUMMARY | 2024-11-30 04:28 | External Medical Summary ---
Author Name Unknown Address Unknown Organization [id number]:[facility] [place] [address] [place] [address] Laboratory Report Ordering Provider Test Date Status SUBHASH STEPHENS 09/08/2024 13:51:46 Final Observation Date Value Abnormality Reference (Units ) Status WBC, Total 09/08/2024 13:51:46 9.33 4.00-10.8 0 (K/uL) Final RBC 09/08/2024 13:51:46 3.88 3.85-5.15 (M/uL) Final Hemoglobin 09/08/2024 13:51:46 12.2 12.0-15.3 (g/dL) Final Anemia reflex testing trigge rs on a HGB < 12.0 for Females and HGB < 13.0 for Males in accordance with the WHO Anemia Guidelines
Anemia reflex testing triggers on a HGB < 12.0 for Females and HGB < 13.0 for Males in accordance with the WHO Anemia Guidelines HCT 09/08/2024 13:51:46 37.4 36.0-45.2 (%) Final MCV 09/08/2024 13:51:46 96.4 81.5-97.5 (fL) Final MCH 09/08/2024 13:51:46 31.4 27.0-34.0 (pg) Final MCHC 09/08/2024 13:51:46 32.6 32.0-36.0 (g/dL) Final RDW 09/08/2024 13:51:46 12.5 11.5-15.5 (%) Final Platelets 09/08/2024 13:51:46 203 140-400 (K /uL) Final MPV 09/08/2024 13:51:46 11.5 6.6-11.1 ( fL) Final Nucleated erythrocytes/100 leukocytes [Ratio] in Blood by Automated count 09/08/2024 13:51:46 0 <=0 (/100 WBCs) Fi nal Performing Location [facility] - [address] [facility] [address]
[2024-11-30] MEDS ORDERED: LIDOCAINE 1% LOCAL 20 ML VIAL INFIL PRN (05:15)
[2024-11-30] MEDS ORDERED: SODIUM CHLORIDE 0.9% 100 ML IV PRN (05:18)
[2024-11-30] MEDS: LACTATED RINGER'S 1,000 ML IV PRN (05:32)
[2024-11-30 05:56] LABS: Hemoglobin 12.3 g/dl (12.0-16.0); Mean Corpuscular Hemoglobin 29.7 pg (25.0-34.0); Mean Corpuscular Hgb Conc 33.2 g/dL (32.0-36.0); Mean Corpuscular Volume 89.4 fL (80.0-100.0); Mean Platelet Volume 11.4 fL (9.4-12.4); Platelet Count 203 K/uL (130-400); RDW Coefficient of Variation 12.3 % (11.5-14.5); RDW Standard Deviation 39.9 fL (36.4-46.3); Red Blood Count 4.14 M/uL (4.20-5.40); White Blood Count 13.21 K/ul (4.8-10.8)
[2024-11-30] MEDS ORDERED: NALOXONE HCL 0.4 MG/1 ML VIAL/CARP IV PRN (06:04)
[2024-11-30] MEDS ORDERED: ONDANSETRON INJ 2 MG/ML 2 ML VIAL IV PRN (06:04)
[2024-11-30] MEDS ORDERED: SODIUM CHLORIDE 0.9% PF INJ 10 ML VIAL EPI PRN (06:04)
[2024-11-30] MEDS ORDERED: ePHEDrine sulfate 50 MG/ML AMP IV PRN (06:04)
[2024-11-30] MEDS ORDERED: NALBUPHINE HCL INJ 10 MG/ML AMP IV PRN (06:04)
[2024-11-30] MEDS ORDERED: fentaNYL citrate PF 100 MCG/2 ML VIAL EPI PRN (06:04)
[2024-11-30] MEDS ORDERED: ROPIVACAINE 0.5% PF 5 MG/ML 20 ML VIAL EPI PRN (06:04)
[2024-11-30] MEDS ORDERED: NALOXONE HCL 1 MG in SODIUM CHLORIDE 0.9% 1,000 ML IV PRN (06:04)
[2024-11-30] MEDS ORDERED: diphenhydrAMINE 50 MG/ML VIAL IV PRN (06:04)
[2024-11-30] MEDS ORDERED: LIDOCAINE 2% MPF LOCAL 5 ML VIAL EPI PRN (06:04)
[2024-11-30] MEDS ORDERED: BUPIVACAINE 0.25% PF 30 ML VIAL EPI PRN (06:04)
--- NOTE | 2024-11-30 06:06 | Anesthesiology Consultation ---
Date of Service November 30, 2024 Assessment & Plan (1) Encounter for pre-operative examination: Chart Review Chart Review: Patient NOT seen in Pre Admission Testing and Acceptable Risk for Labor Epidural Consults Requested none History Height/Weight Height: 5 ft 5 in Weight: 107.501 kg Allergies Allergy/AdvReac Type Severity Reaction Status Date / Time amoxicillin Allergy Unknown Vomiting Verified 11/30/24 04:50 Medications Home Medications Medication Instructions Recorded Confirmed Last Taken vits no.124-ferrous fum 1 tab PO DAILY@08 #60 tabs 11/14/21 11/30/24 11/29/24 27 mg iron-folic acid 800 mcg tablet ( Vitamin) Active Medications Generic Name Dose Route Start Last Admin Trade Name Freq PRN Reason Stop Dose Admin Lactated Ringer's 1,000 mls @ 125 mls/hr 11/30/24 05:15 11/30/24 05:32 Lr IV 12/01/24 05:14 999 mls/hr .Q8H PRN Administration L&D Protocol Protocol Past Medical History Medical History (Updated 11/30/24 @ 06:06 by Raghav Mcmanus MD) Encounter for pre-operative examination Spontaneous vaginal delivery 02/2019 [facility] [place] 11/2021 [facility] GERD (gastroesophageal reflux disease) , post-term PCOS (polycystic ovarian syndrome) Exercise / Class Metabolic Activity II 4-5 Yardwork/Stairs/Walk up hill Past Surgical History Surgical History [place] teeth removed Past Anesthesia History No Hx of Anesthesia Complications and No Family Hx of Anesthesia Complications Social History Smoking Status: Never smoker Hx Alcohol Use: No Hx Substance Use: No Physical Exam Vital Signs Last Vital Signs Temp 36.4 C L 11/30/24 05:00 Pulse 93 H 11/30/24 06:26 Resp 18 11/30/24 05:00 BP 116/67 11/30/24 06:26 Pulse Ox 96 11/30/24 06:21 O2 Del Method Room Air 11/30/24 04:53 Testing Laboratory Results 11/30/24 05:40
[2024-11-30] MEDS: BUPIVACAINE 0.25% PF 30 ML VIAL ONE (06:25)
[2024-11-30] MEDS: LIDOCAINE 2%/EPINEPHRINE 1:200,000 20 ML PF ONE (06:25)
[2024-11-30] MEDS: fentaNYL citrate PF 100 MCG/2 ML VIAL ONE (06:26)
[2024-11-30] MEDS: fentANYL 2 MCG/ML BUPIVacaine 0.125%-NSS 100ML BAG EPI PRN (06:30)
[2024-11-30] MEDS: fentaNYL citrate PF 100 MCG/2 ML VIAL EPI STA (06:33)
[2024-11-30] MEDS: BUPIVACAINE 0.25% PF 30 ML VIAL EPI STA (06:33)
[2024-11-30] MEDS: SODIUM CHLORIDE 0.9% PF INJ 10 ML VIAL ONE (06:33)
[2024-11-30] MEDS: fentANYL 2 MCG/ML BUPIVacaine 0.125%-NSS 100ML BAG ONE (06:33)
[2024-11-30] MEDS: SODIUM CHLORIDE 0.9% PF INJ 10 ML VIAL EPI STA (06:34)
[2024-11-30] MEDS: LIDOCAINE 2%/EPINEPHRINE 1:200,000 20 ML PF EPI STA (06:34)
[2024-11-30] MEDS: ePHEDrine sulfate 50 MG/ML AMP ONE (06:53)
--- NOTE | 2024-11-30 06:58 | History & Physical Report ---
Date of Service November 30, 2024 Assessment & Plan (1) Labor abnormality, antepartum: Plan Epidural anesthesia for pain control Delivery Admission and Anticipated Discharge Date Admission Date: November 30, 2024 History of Present Illness Chief Complaint: Intrauterine 39 weeks 6 days gestation Contractions every 5 minutes Primary Care Provider: John Mcgee Patient is a 29-year-old 3 para 2 she is in good general health. Deborah patel has been well dated with a first trimester ultrasound. Her due date is 12/01/2024. She has had no problems. She has a history of having large babies. First delivery was in 2018 a boy 8 pounds 15 ounces. This was at 40 weeks and 2 days gestation. Labor consisted of 3 hours of labor and about a 10- minute push. Second child was born 2021 was a girl [address] pounds [address] arted at 40 weeks and 3 days. Labor lasted about 5 hours and she pushed for 10 minutes. She called the answering service the day of admission stated she was having contractions every 5 minutes for the past 2 to 3 hours. She was told to come to maternity for evaluation. When she arrived on maternity she was 6 cm dilated. And fluids were started for epidural. Allergies Allergy/AdvReac Type Severity Reaction Status Date / Time amoxicillin Allergy Unknown Vomiting Verified 11/30/24 04:50 Home Medications Medication Instructions Recorded Confirmed Type vits no.124-ferrous fum 1 tab PO DAILY@08 #60 tabs 11/14/21 11/30/24 Rx 27 mg iron-folic acid 800 mcg tablet ( Vitamin) Past Med/Surg History Problem List (Updated 11/30/24 @ 06:57 by Donn Sánchez MD) Labor abnormality, antepartum Medical History (Updated 11/30/24 @ 06:57 by Donn Sánchez MD) Encounter for pre-operative examination Spontaneous vaginal delivery 02/2019 [facility] [place] 11/2021 [facility] GERD (gastroesophageal reflux disease) , post-term PCOS (polycystic ovarian syndrome) Surgical History [place] teeth removed Social History Smoking Status: Never smoker Second Hand Exposure: No; Hx Alcohol Use: No Hx Substance Use: No Preferred Language: Arabic Communication Ability: Effective Flour Mixer Helper Required: No Beliefs That Will Affect Care: None marital status: Current Living Situation: Spouse Current Living Situation Comment: house with and kids Other Information That Helps Us Care for You: No Feels Safe at Home: Yes Safety Concerns: Feels Safe At This Time Assistive Devices: Glasses Physical Exam Physical Exam: Patient appeared to be well-developed well-nourished 29-year-old white female alert oriented x 3 and distressed due to uterine contractions. Heart had a regular rhythm S1 and S2 are normal. Lungs are clear to auscultation and percussion. Trachea was midline there is no cervical adenopathy. Abdomen is consistent with a term size fetus. Contractions were palpable every 5 minutes. There was no calf tenderness. Pelvic exam revealed cervix to be 6 cm dilated vertex presentation membranes intact. Results & Data Results & Data Vital Signs (Past 12 Hours) Vital Signs Temp Pulse Resp BP Pulse Ox O2 Del Method 11/30/24 06:46 98 11/30/24 06:46 96 H 11/30/24 06:44 91 H 11/30/24 06:44 103/57 L 11/30/24 06:42 93 H 11/30/24 06:42 120/59 L 11/30/24 06:41 98 11/30/24 06:41 97 H 11/30/24 06:39 86 11/30/24 06:39 104/58 L 11/30/24 06:38 88 11/30/24 06:38 102/53 L 11/30/24 06:36 99 11/30/24 06:36 96 H 11/30/24 06:36 105 H 11/30/24 06:36 109/56 L 11/30/24 06:34 116 H 11/30/24 06:34 120/66 11/30/24 06:32 101 H 11/30/24 06:32 114/65 11/30/24 06:31 98 11/30/24 06:31 103 H 11/30/24 06:29 98 H 11/30/24 06:29 127/75 11/30/24 06:28 96 H 11/30/24 06:28 125/74 11/30/24 06:26 97 11/30/24 06:26 94 H 04/24/25 06:26 93 H 11/30/24 06:26 116/67 11/30/24 06:24 93 H 11/30/24 06:24 128/72 11/30/24 06:22 100 H 11/30/24 06:22 122/76 11/30/24 06:21 96 11/30/24 06:21 93 H 11/30/24 06:16 98 11/30/24 06:16 93 H 11/30/24 06:13 95 H 11/30/24 06:13 134/81 11/30/24 06:11 98 11/30/24 06:11 99 H 11/30/24 06:06 97 11/30/24 06:06 98 H 11/30/24 06:01 98 11/30/24 06:01 105 H 11/30/24 05:00 18 11/30/24 05:00 36.4 C L 18 11/30/24 04:53 36.4 C L 18 Room Air 11/30/24 04:34 100 H 138/87
--- NOTE | 2024-11-30 08:25 | Labor Progress Brief Note ---
Date of Service November 30, 2024 Assessment & Plan Admission and Anticipated Discharge Date Admission Date: November 30, 2024 Physical Exam Genitourinary: Manual OB Exam: + cervical dilation 7 cm, + cervical effacement 80%, + station -1 and + amniotic fluid (Spontaneous rupture of membranes with copious clear fluid noted) clear OB Exam Monitor Tracing: + external FHT monitor used, + external uterine monitor used, + category I and + normal FHT variability Results & Data Vital Signs (Past 12 Hours) Vital Signs Temp Pulse Resp BP Pulse Ox O2 Del Method 11/30/24 08:21 100 11/30/24 08:21 92 H 11/30/24 08:16 99 11/30/24 08:16 81 11/30/24 08:14 75 11/30/24 08:14 102/56 L 11/30/24 08:11 98 11/30/24 08:11 71 11/30/24 08:06 99 11/30/24 08:06 74 11/30/24 08:01 99 11/30/24 08:01 77 11/30/24 07:59 79 11/30/24 07:59 108/54 L 11/30/24 07:56 98 11/30/24 07:56 81 11/30/24 07:51 98 11/30/24 07:51 77 11/30/24 07:46 99 11/30/24 07:46 79 11/30/24 07:44 81 11/30/24 07:44 109/55 L 11/30/24 07:41 98 11/30/24 07:41 87 11/30/24 07:36 97 11/30/24 07:36 93 H 11/30/24 07:31 98 11/30/24 07:31 79 11/30/24 07:29 81 11/30/24 07:29 96/51 L 11/30/24 07:26 96 11/30/24 07:26 85 11/30/24 07:21 97 11/30/24 07:21 82 11/30/24 07:16 97 11/30/24 07:16 96 H 11/30/24 07:15 86 11/30/24 07:15 98/55 L 11/30/24 07:11 98 11/30/24 07:11 80 11/30/24 07:09 16 11/30/24 07:09 36.7 C 16 11/30/24 07:06 99 11/30/24 07:06 84 11/30/24 07:01 97 11/30/24 07:01 100 H 11/30/24 07:00 18 11/30/24 07:00 18 11/30/24 06:59 81 11/30/24 06:59 93/56 L 11/30/24 06:56 99 11/30/24 06:56 91 H 11/30/24 06:51 98 11/30/24 06:51 92 H 11/30/24 06:46 98 11/30/24 06:46 96 H 11/30/24 06:44 91 H 11/30/24 06:44 103/57 L 11/30/24 06:42 93 H 11/30/24 06:42 120/59 L 11/30/24 06:41 98 11/30/24 06:41 97 H 11/30/24 06:39 86 11/30/24 06:39 104/58 L 11/30/24 06:38 88 11/30/24 06:38 102/53 L 11/30/24 06:36 99 11/30/24 06:36 96 H 11/30/24 06:36 105 H 11/30/24 06:36 109/56 L 11/30/24 06:34 116 H 11/30/24 06:34 120/66 11/30/24 06:32 101 H 11/30/24 06:32 114/65 11/30/24 06:31 98 11/30/24 06:31 103 H 11/30/24 06:29 98 H 11/30/24 06:29 127/75 11/30/24 06:28 96 H 11/30/24 06:28 125/74 11/30/24 06:26 97 11/30/24 06:26 94 H 11/30/24 06:26 93 H 11/30/24 06:26 116/67 11/30/24 06:24 93 H 11/30/24 06:24 128/72 11/30/24 06:22 100 H 11/30/24 06:22 122/76 11/30/24 06:21 96 11/30/24 06:21 93 H 11/30/24 06:16 98 11/30/24 06:16 93 H 11/30/24 06:13 95 H 11/30/24 06:13 134/81 11/30/24 06:11 98 11/30/24 06:11 99 H 11/30/24 06:06 97 11/30/24 06:06 98 H 11/30/24 06:01 98 11/30/24 06:01 105 H 11/30/24 05:00 18 11/30/24 05:00 36.4 C L 18 11/30/24 04:53 36.4 C L 18 Room Air 11/30/24 04:34 100 H 138/87
[2024-11-30] MEDS: OXYTOCIN 30 UNITS/NSS 30 UNITS/500 ML BAG IV PRN ×2 (09:02→12:32)
[2024-11-30] MEDS ORDERED: bisacodyL 10 MG SUPP PR PRN (11:53)
[2024-11-30] MEDS ORDERED: BENZOCAINE 20% SPRY 85 APPLN/85 GM CAN EXT PRN (11:53)
[2024-11-30] MEDS ORDERED: HYDROCORTISONE ACETATE 25 MG SUPP PR PRN (11:53)
[2024-11-30] MEDS ORDERED: DIPHTHER/TETAN/PERTUS Vaccine (Tdap, Adol/Adult) 0.5mL IM ONE (11:53)
[2024-11-30] MEDS ORDERED: OXYTOCIN 30 UNITS/NSS 30 UNITS/500 ML BAG IV PRN (11:53)
--- NOTE | 2024-11-30 11:59 | Delivery Summary ---
Vaginal Delivery Summary Date of Service November 30, 2024 Vaginal Delivery Summary live male MARY over intact perineum with delayed cord clamping and Apgars 8/9 weight pending. Cord blood obtained followed by spontaneous delivery of intact placenta. Second degree tear repaired with 3/0 Vicryl suture. Final sponge, needle and instrument counts are correct. QBL 95 ml. Mom and baby stable.
--- NOTE | 2024-11-30 12:43 | Anesthesia Procedure Note ---
Date of Service November 30, 2024 Anesthesia Post Epidural Note Vital Signs Vital Signs: Temp Pulse Resp BP Pulse Ox O2 Del Method 36.9 C 80 18 136/82 98 Room Air 11/30/24 10:45 11/30/24 12:30 11/30/24 10:45 11/30/24 12:30 11/30/24 11:46 11/30/24 04:53 Notes Mental Status: alert / awake / arousable and participated in evaluation Nausea / Vomiting: adequately controlled Pain: adequately controlled Airway Patency, RR, SpO2: stable & adequate BP & HR: stable & adequate Hydration State: stable & adequate Neuraxial Anesthesia: was administered and sensory block resolved Anesthetic Complications: no major complications apparent and Pt Satisfied with anesthetic care Epidural: Removed without complications and With tip intact
[2024-11-30] MEDS: IBUPROFEN 600 MG TAB PO PRN (21:04)
[2024-11-30] MEDS: ACETAMINOPHEN 325 MG TAB PO PRN (21:05)
[2024-12-01] MEDS: DOCUSATE SODIUM 100 MG CAP PO SCH (01:27)
[2024-12-01 05:24] VITALS: RESP 16
[2024-12-01 06:21] LABS: Hematocrit (blood only) 32.6 % (37.0-47.0); Hemoglobin 10.8 g/dl (12.0-16.0); Mean Corpuscular Hemoglobin 30.4 pg (25.0-34.0); Mean Corpuscular Hgb Conc 33.1 g/dL (32.0-36.0); Mean Corpuscular Volume 91.8 fL (80.0-100.0); Mean Platelet Volume 11.5 fL (9.4-12.4); Platelet Count 199 K/uL (130-400); RDW Coefficient of Variation 12.5 % (11.5-14.5); RDW Standard Deviation 41.3 fL (36.4-46.3); Red Blood Count 3.55 M/uL (4.20-5.40); White Blood Count 9.06 K/ul (4.8-10.8)
[2024-12-01] MEDS: FERROUS SULFATE 325 MG TAB PO SCH (07:29)
[2024-12-01] MEDS: PRENATAL VITAMIN 1 TAB PO SCH (07:29)
[2024-12-01] MEDS ORDERED: PRENATAL VITAMIN 1 TAB PO SCH (08:00)
--- NOTE | 2024-12-01 08:50 | Discharge Summary ---
Date of Service December 01, 2024 Admission HPI Per Admitting Provider Patient is a 29-year-old 3 para 2 she is in good general health. has been well dated with a first trimester ultrasound. Her due date is 12/01/2024. She has had no problems. She has a history of having large babies. First delivery was in 2018 a boy 8 pounds 15 ounces. This was at 40 weeks and 2 days gestation. Labor consisted of 3 hours of labor and about a 10-minute push. Second child was born 2021 was a girl 8 pounds 9 ounces. Labor started at 40 weeks and 3 days. Labor lasted about 5 hours and she pushed for 10 minutes. She called the answering service the day of admission stated she was having contractions every 5 minutes for the past 2 to 3 hours. She was told to come to maternity for evaluation. When she arrived on maternity she was 6 cm dilated. And fluids were started for epidural. Discharge Data Consultations 11/30/24 05:15 Consult Anesthesiology Stat Procedures Performed s/p [facility]3] Hospital Course (1) Labor abnormality, antepartum: s/p [facility]3] Plan discharge plan today instructions follow in the office at 3 weeks and 6 weeks for visit continue PNV and Feso4 Discharge Instructions ACTIVITY RECOMMENDATIONS: * Gradual return to full activity over the next 2-3 weeks. * No lifting - nothing heavier than baby over the next 2-3 weeks. * Do not engage in vigorous exercise, sexual activity or sports until cleared by your physician. * Do not drive or operate any motorized equipment until cleared by your physician. * You may shower/bathe daily. BREAST CARE: If you are not breast feeding: * Wear a supportive bra 24 hours a day for one to two weeks. * Avoid stimulating your breasts and nipples as much as possible during the first few weeks after delivery. * When taking a shower, have the warm water hit your back, not breasts. * When your breasts feel full, apply ice packs. Usually three to four times a day helps ease the discomfort. * Take a mild pain medication (Tylenol/Motrin) when you are uncomfortable. If breast feeding: * Use breast milk to lubricate nipples. Lansinoh cream may be used for sore nipples. You do not need to remove cream prior to breast feeding. If using a different brand of cream, check the label for directions regarding removal of cream prior to nursing. * Wear a supportive bra. * If having problems with breasts or breast feeding, call a philatelic consultant or your health care provider. EPISIOTOMY CARE: After delivery, if you have an episiotomy (stitches), the following steps will ease discomfort and aid healing. * For the first 24 hours after delivery, place ice packs next to your ep isiotomy to help reduce swelling. * After the first 24 hour-period, sitz baths, either portable or in the tub, are suggested. A shower with a shower arm sprayed over the episiotomy may be comforting. * Vanesa care should be done after each voiding and bowel movement. Squirt warm water from a plastic bottle over the perineum (region of the body between the anus and urinary opening) and pat dry. * Use Dermoplast to ease discomfort. Shake container. [place] directly over the episiotomy. * Place a Tucks on a clean sanitary pad next to your episiotomy. OVER THE COUNTER MEDICATION: * For discomfort or pain, you may use Acetaminophen (Tylenol), Ibuprofen (Advil), or Naproxen (Aleve) following the package directions. * For constipation you may use Colace following the package directions. SPECIAL CARE INSTRUCTIONS: When you are discharged from the hospital, it is important for you to follow the instructions listed below: * During the first week at home, you should be able to care for yourself and your baby. In addition, the usual light household activities are encouraged. * Limit your activities to the way you feel. Do not try to clean the house or move furniture. Be sensible. * If you actively engage in sports and have done so up until the time of your delivery, you may resume these activities as soon as you feel able. This may take up to one month or even longer. Use good judgment. * Continue to take your vitamins for at least six weeks after the b irth of your baby. * Your diet need not be limited unless you were on a special diet before your delivery. Breast-feeding mothers need around 2500 calories per day and at least 64-80 ounces of fluid per day (8 to 10 glasses). * You should eat foods from the four major food groups. Crash diets or fad diets are to be avoided. Eating lean meats, fresh fruits and vegetables, low-fat dairy products, high fiber foods and a regular exercise program, will help you get back to your pre- weight without putting your health at risk. * Constipation is sometimes a problem after delivery. Take a mild laxative as needed. If breast feeding, Milk of Magnesia is acceptable to use. You may use a suppository or Fleets enema if no episiotomy. * A daily shower or tub bath is suggested. Be sure to thoroughly and gently dry the perineum. * A bloody vaginal discharge will usually continue until around four weeks post . A small amount of bleeding may continue for as long as six weeks. Vaginal discharge changes from the bright red bleeding after delivery to pink then brownish and finally yellowish-pink before becoming white and disappearing. * Bleeding may increase with activity. Your first period may come in 4-8 weeks. If you are breast feeding, your period may be delayed even longer. * [place] (sex) can begin whenever both you and your partner feel comfortable and do not have any form of genital infection. It is recommended that you wait until after your return appointment and discuss with your physician. If you have questions, please talk to your health care practitioner. A condom should be used to prevent infection and . * Foreplay, gentle intercourse and lubrication is very important the first several times to prevent pain. A water-based lubricant such as K-Y jelly or Astroglide may be used. * Tampons may be used six weeks after delivery. * Douching should be avoided for 6 weeks after delivery. * If you have RH negative blood and your baby is RH positive, you will receive RHOGAM by injection prior to discharge. The nurse will give you a card to keep with you that has the date and place that you received RHOGAM after delivery. * During your care, you had a Rubella screen done to check for the presence of rubella antibodies in your blood. If your test was negative, you will receive a Rubella vaccine prior to discharge. This vaccine may cause a fever, soreness at the injection site and flu-like symptoms. If these symptoms persist, notify your health care practitioner. is not advised for three months after a Rubella vaccine. There is a higher chance of having a baby with defects if conceived within three months of getting the vaccine. * If you were discharged 24 hours from delivery or before 48 hours: Visiting nurses will come to your home 48 hours after discharge to assess you and your baby. The visiting nurse will meet with you while you are in the hospital to arrange a time and get directions to your home. * Verbalizes understanding of car seat law as reviewed with patient nursing. * Car Seat hand-out given and reviewed with patient by nursing. * Shaken baby information reviewed with patient by nursing. Call you doctor if: * Heavy bleeding (saturating several pads an hour) or passing clots the size of your fist. * A fever >101 degrees F (38.3 degrees C) on two occasions four hours apart and/or chills. * Unusual pain in the pelvic or vaginal areas. * "Baby Blues" lasting longer than two weeks. If you have any questions or concerns, call your health care practitioner at . FOLLOW-UP VISIT: * Please call the office at to schedule 3 and 6 week examination. It is important you keep this appointment. * It is important for you to make arrangements for either yearly or twice yearly check-ups thereafter.
[2024-12-01 12:19] VITALS: BP 122/86; PULSE 70; TEMP 98.6; O2SAT 97
[2024-12-01] MEDS ORDERED: bisacodyL 5 MG TABEC PO SCH (20:00)
== END 2024-12-01 14:00 | disposition home or self-care (01) | DRG 807 ==
LOC: OPB 04:20 → 4S1 04:22 → 4E2 15:16
DX: Z3A.39 39 weeks gestation of pregnancy; O42.02 Full-term premature rupture of membranes, onset of labor within 24 hours of rupture; Z37.0 Single live birth; Z88.1 Allergy status to other antibiotic agents; O70.1 Second degree perineal laceration during delivery